=== PATIENT | female | born 1955 | race Caucasian/White ===

== ENCOUNTER 2017-03-27 16:31 | Emergency (ER) | payer OTHER ==
[~2017-03-27] VITALS: Ht 157.5 cm; Wt 54.4 kg
[~2017-03-27 16:31] MED LIST: ATIVAN0.5 MG ORAL; BACTRIM DS TAB1 EAC1 ORAL; BENADRYL ALLERG25 M1 PO; BENADRYL25 M3 PO; BENADRYL25 MG ORAL; CEPHALEXIN500 MG ORAL; HYDROXYZINE HCL25 M1 PO; IBUPROFEN400 MG ORAL; IBUPROFEN600 MG ORAL; MEDROL DOSEPAK4 MG ORAL; NKM; PEPCID20 MG ORAL; PERMETHRIN60 GM TOPIC; ZOFRAN4 M3 ORAL
--- NOTE | 2017-03-27 18:10 | Emergency Room Report ---
History of Present Illness General Chief Complaint: Skin Rash/Abscess Present Illness HPI 62 YO female Presents to the emergency department complaining of possible spider bite to the left eyebrow. Patient states that she has had multiple pimples in that area with erythema and tenderness with mild swelling. She denies burning sensation, blistering, recent illness, fevers, chills, eye pain. Pt states pimples occurred after having a wig glued into her hair, denies itching. Patient states that recently the upper eyelid began to swell and become mildly erythematous as well. Patient denies discharge from the eye or visual changes. Patient also states she has had decreased hearing in the left ear she denies ear pain she reports use of q-tips, denies tenderness or discharge from the ear. Denies CP, Palpitations, LOC, AMS, dizziness, Changes in Vision, Sensation, paresthesias, or a sudden severe headache. Allergies: Coded Allergies: No Known Allergies (Unverified , 01/04/14) Patient History Past Medical History: see triage record Past Surgical History: none Pertinent Family History: none Now: No Reviewed Nursing Documentation: PMH: Agreed, PSxH: Agreed Nursing Documentation-PMH Hx Asthma: Yes Review of Systems All Other Systems: negative except mentioned in HPI Physical Exam Vital Signs Date Time Temp Pulse Resp B/P Pulse Ox O2 Delivery O2 Flow Rate FiO2 03/27/17 17:08 98.1 79 20 133/100 99 Room Air Sp02 EP Interpretation: reviewed, normal General Appearance: no apparent distress, alert, GCS 15, non-toxic Head: normocephalic, atraumatic Eyes: left eye other - erythema and swelling to the left upper eyelid, coalsecent with erythema from pustules of the left eyebrow, increased lacrimation noted, and mild d/c , bilateral eye EOMI, bilateral eye PERRL, bilateral eye normal inspection ENT: hearing grossly normal, normal pharynx, no angioedema, normal voice, other - cerumen impaction of the left ear canal, no vessicles, lesions or erythema of the canal other fortune. Neck: full range of motion, no meningismus, supple/symm/no masses Respiratory: lungs clear, normal breath sounds, speaking full sentences Cardiovascular #1: regular rate, rhythm, no edema Rectal: deferred Genitourinary: normal inspection Musculoskeletal: back normal, gait/station normal, normal range of motion, non- tender Neurologic: alert, oriented x3, responsive, motor strength/tone normal, sensory intact, speech normal Psychiatric: judgement/insight normal, memory normal, mood/affect normal Skin: normal color, warm/dry, well hydrated, other - pustules noted to the left sided hair line, and left forhead/eyebrow mild surrounding erythema, no vessicles. Lymphatic: no adenopathy Medical Decision Making PA Attestation Dr. Coughlin is my supervising Physician whom patient management has been discussed with. Diagnostic Impression: Primary Impression: Folliculitis Additional Impressions: Conjunctivitis Qualified Codes: H10.32 - Unspecified acute conjunctivitis, left eye Impacted cerumen of left ear ER Course 62 YO female Presents to the emergency department complaining of possible spider bite to the left eyebrow. Patient states that she has had multiple pimples in that area with erythema and tenderness with mild swelling. She denies burning sensation, blistering, recent illness, fevers, chills, eye pain. Pt states pimples occurred after having a wig glued into her hair, denies itching. Patient states that recently the upper eyelid began to swell and become mildly erythematous as well. Patient denies discharge from the eye or visual changes. Patient also states she has had decreased hearing in the left ear she denies ear pain she reports use of q-tips, denies tenderness or discharge from the ear. Denies CP, Palpitations, LOC, AMS, dizziness, Changes in Vision, Sensation, paresthesias, or a sudden severe headache. Ddx considered but are not limited to cellulitis, scabies, shingles, varicella, dermatitis, urticaria, eczema, tinea, folliculitis, conjunctivitis, orbital cellulitis, hordeolum Vital signs: are WNL, pt. is afebrile H&PE are most consistent with folliculitis, left eye conjunctivitis, and impacted cerumen ORDERS: none required at this time, the diagnosis is clinical ED INTERVENTIONS: None required at this time. DISCHARGE: At this time pt. is stable for d/c to home. Will provide printed patient care instructions, and any necessary prescriptions. Care plan and follow up instructions have been discussed with the patient prior to discharge. Last Vital Signs Date Time Temp Pulse Resp B/P Pulse Ox O2 Delivery O2 Flow Rate FiO2 7/14/17 17:08 98.1 79 20 133/100 99 Room Air Disposition: HOME, SELF-CARE Condition: Stable Scripts Erythromycin Base (Erythromycin) 1 Gm Oint...g. 1 GM OP BID, #1 GM Prov: Alesha Raphael 03/27/17 Carbamide Peroxide (DEBROX) 15 Ml Drops 10 DROP LEFT EAR TWICE A DAY for 4 Days, #15 ML 0 Refills Prov: Alesha Raphael 03/27/17 Cephalexin* (KEFLEX*) 500 Mg Capsule 500 MG ORAL EVERY 12 HOURS for 7 Days, #14 CAP 0 Refills Prov: Alesha Raphael 03/27/17 Referrals: [facility],REFERRING (PCP) Patient Instructions: Cerumen Impaction, Folliculitis Additional Instructions: Take medications as directed. Follow up with a Primary Care Provider in 3-5 days, even if your symptoms have resolved. --Please review list of primary care clinics, if you do not already have a primary care provider Return sooner to ED if new symptoms occur, or current symptoms become worse. - Please note that this Emergency Department Report was dictated using [employer] information clerk technology software, occasionally this can lead to erroneous entry secondary to interpretation by the dictation equipment. Alesha Raphael Mar 27, 2017 18:10
[2017-03-27] MEDS ORDERED: DEBROX15 M1 LEFT EAR (18:12)
[2017-03-27] MEDS ORDERED: CEPHALEXIN500 MG ORAL (18:12)
[2017-03-27] MEDS ORDERED: ERYTHROMYCIN1 G1 OP (18:12)
[2017-03-27 18:27] VITALS: BP 122/99
== END 2017-03-27 18:27 | disposition home or self-care (01) ==
LOC: EMR 18:00
DX: L73.9 Follicular disorder, unspecified (principal); F48.8 Other specified nonpsychotic mental disorders; H61.22 Impacted cerumen, left ear
CPT/HCPCS: 99284

== ENCOUNTER 2017-05-27 11:37 | Inpatient (IN) | payer OTHER ==
[~2017-05-27] VITALS: Ht 162.6 cm; Wt 55.3 kg
[~2017-05-27 11:37] MED LIST changes: +DEBROX15 M1 LEFT EAR; +ERYTHROMYCIN1 G1 OP
[2017-05-27] MEDS ORDERED: Morphine Sulfate 2mg/ml Inj IVP ONE ×2 (12:00→17:00)
--- NOTE | 2017-05-27 12:05 | Emergency Room Report ---
History of Present Illness General Chief Complaint: Abdominal Pain Source: Patient Present Illness HPI 62 yo female with no sig pmhx p/w abdominal pain today. Patient states pain localized to right upper abdomen, non radiating, sharp in nature, intermittent. No relieving or exacerbating factors. Severity is 5/10. Pt reports n/v, 2 episodes of nbnb vomiting, denies diarrhea Denies fever, chills. No hx of abdominal surgeries. Denies any chest pain or shortness of breath Allergies: Coded Allergies: No Known Allergies (Unverified , 01/04/14) Patient History Past Medical History: see triage record Past Surgical History: none Pertinent Family History: none Last Menstrual Period: na Now: No Reviewed Nursing Documentation: PMH: Agreed, PSxH: Agreed Nursing Documentation-PMH Past Medical History: No Stated History Review of Systems All Other Systems: negative except mentioned in HPI Physical Exam Vital Signs Date Time Temp Pulse Resp B/P (MAP) Pulse Ox O2 Delivery O2 Flow Rate FiO2 05/27/17 11:38 97.5 119 36 144/104 100 Room Air Sp02 EP Interpretation: reviewed, normal General Appearance: normal inspection, well appearing, no apparent distress, alert, GCS 15, non-toxic Head: normocephalic, atraumatic Eyes: bilateral eye normal inspection, bilateral eye PERRL, bilateral eye EOMI ENT: normal ENT inspection, normal pharynx, normal voice, moist mucus membranes Neck: normal inspection, full range of motion, supple Respiratory: normal inspection, lungs clear, normal breath sounds, no respiratory distress, no retraction, no wheezing, speaking full sentences, chest symmetrical Cardiovascular #1: normal inspection, no edema, normal capillary refill, tachycardia Cardiovascular #2: 2+ radial (R), 2+ radial (L) Gastrointestinal: soft, non-distended, other - Right upper quadrant tenderness , mild epigastric tenderness, nontender all other quadrants of the abdomen Musculoskeletal: normal inspection, back normal, normal range of motion, non- tender Neurologic: normal inspection, alert, oriented x3, responsive, motor strength/ tone normal, sensory intact, normal gait, speech normal Psychiatric: normal inspection, judgement/insight normal, memory normal Skin: normal inspection, normal color, no rash, warm/dry, well hydrated, normal turgor Procedures Critical Care Time Critical Care Time 40 minutes of CC time 62YO female with abdominal pain VS: Tachycardic Sepsis criteria met Airway patent. Not hypoxic. PLAN: IV access, labs, lactate, Blood/Urine Cx, Abx, right upper quadrant sonogram Anticipate admissionto Tele CC time also includes review of labs, d/w hospitalist CC could include dosing of pressors, additional Abx CC time does not include procedures Medical Decision Making Diagnostic Impression: Primary Impression: Severe sepsis Additional Impression: Cholecystitis ER Course 62 yo female with abdominal pain Differential Diagnosis: Gastritis, gastroenteritis, cholecystitis, cardiac Plan: Basic labs, ua, ekg Pepcid, maalox, pain control, IVF RUQ sono ER course: Patient has remained stable during ED stay. Received IV fluids and antibiotics. Right upper quadrant sonogram consistent with acute cholecystitis. Disposition: patient will be admitted to telemetry for sepsis secondary to cholecystitis registrations states that patient will be admitted to Dr. Giraldo, contacted Dr. Giraldo and requested admission to Dr. Berumenmedi Surgeon Dr. Gabriel aware of patient. Please note that this Emergency Department Report was dictated using [employer] tender technology software, occasionally this can lead to erroneous entry secondary to interpretation by the dictation equipment Laboratory Tests Test 05/27/17 12:45 White Blood Count 30.7 K/UL (4.8-10.8) *H Red Blood Count 4.76 M/UL (4.20-5.40) Hemoglobin 13.7 G/DL (12.0-16.0) Hematocrit 42.2 % (37.0-47.0) Mean Corpuscular Volume 89 FL (80-99) Mean Corpuscular Hemoglobin 28.7 PG (27.0-31.0) Mean Corpuscular Hemoglobin Concent 32.4 G/DL (32.0-36.0) Red Cell Distribution Width 11.1 % (11.6-14.8) L Platelet Count 179 K/UL (150-450) Mean Platelet Volume 12.0 FL (6.5-10.1) H Neutrophils (%) (Auto) % (45.0-75.0) Lymphocytes (%) (Auto) % (20.0-45.0) Monocytes (%) (Auto) % (1.0-10.0) Eosinophils (%) (Auto) % (0.0-3.0) Basophils (%) (Auto) % (0.0-2.0) Neutrophils % (Manual) Pending Lymphocytes % (Manual) Pending Platelet Estimate Pending Platelet Morphology Pending Sodium Level 136 mEQ/L (135-145) Potassium Level 3.6 mEQ/L (3.4-4.9) Chloride Level 92 mEQ/L (98-107) L Carbon Dioxide Level 30 mEQ/L (20-30) Anion Gap 14 (5-15) Blood Urea Nitrogen 21 mg/dL (7-23) Creatinine 1.0 mg/dL (0.5-0.9) H Estimate Glomerular Filtration Rate 56.5 mL/min (>60) Glucose Level 147 mg/dL (74-106) H Calcium Level 9.4 mg/dL (8.6-10.2) Total Bilirubin 0.9 mg/dL (0.0-1.2) Aspartate Amino Transferase (AST) 26 U/L (5-40) Alanine Aminotransferase (ALT) 24 U/L (3-33) Alkaline Phosphatase 36 U/L (35-104) Troponin I < 0.30 ng/mL (<=0.30) Total Protein 7.5 g/dL (6.6-8.7) Albumin 3.8 g/dL (3.5-5.2) Globulin 3.7 g/dL Albumin/Globulin Ratio 1.0 (1.0-2.7) Lipase 8 U/L (< 60) EKG Diagnostic Results Rate: tachycardiac Rhythm: NSR ST Segments: other - pvcs, lvh ASA given to the pt in ED: No Rhythm Strip Diag. Results EP Interpretation: yes Rate: 110 Rhythm: NSR, no PVC's, no ectopy CT/MRI/US Diagnostic Results CT/MRI/US Diagnostic Results : Imaging Test Ordered: US gallbladder Impression mpression: Gallbladder sludge and likely small gallstones. Markedly thickened gallbladder wall. This, in combination with positive sonographic Soliz's sign, raises concern for acute cholecystitis. However, given stated clinical history of jaundice, gallbladder wall thickening could also be reactive in the setting of adjacent hepatocellular inflammation Dilated common bile duct and intrahepatic ducts. Raises concern for downstream obstruction, possibly from choledocholithiasis. Consider MRCP or CT for better characterization Electronically signed by Derrick Espinoza MD Last Vital Signs Date Time Temp Pulse Resp B/P (MAP) Pulse Ox O2 Delivery O2 Flow Rate FiO2 9//17 11:38 97.5 119 36 144/104 100 Room Air Disposition: ADMITTED INPATIENT Condition: Serious Derrick Espinoza M.D. May 27, 2017 12:05
[2017-05-27 12:52] LABS: MEAN CORPUSCULAR HEMOGLOBIN 28.7 PG (27.0-31.0); MEAN CORPUSCULAR HGB CONC 32.4 G/DL (32.0-36.0); MEAN CORPUSCULAR VOLUME 89 FL (80-99); PLATELET COUNT 179 K/UL (150-450); RED BLOOD COUNT 4.76 M/UL (4.20-5.40); RED CELL DISTRIBUTION WIDTH 11.1 % (11.6-14.8)
[2017-05-27 12:57] LABS: WHITE BLOOD COUNT 30.7 K/UL (4.8-10.8)
[2017-05-27] MEDS ORDERED: NS 1000ml 1,600 ML IVLG ONE (13:00)
[2017-05-27] MEDS ORDERED: cefTRIAXone 1 GM in NS 55 ML IV ONE (13:00)
[2017-05-27] MEDS ORDERED: metroNIDAZOLE 500mg tab ORAL ONE (13:00)
[2017-05-27 13:03] VITALS: BP 125/94
[2017-05-27 13:05] LABS: CALCIUM 9.4 mg/dL (8.6-10.2); GLOMERULAR FILTRATION RATE 56.5 mL/min (>60); POTASSIUM 3.6 mEQ/L (3.4-4.9); TOTAL PROTEIN 7.5 g/dL (6.6-8.7); TROPONIN I < 0.30 ng/mL (<=0.30)
[2017-05-27 13:48] LABS: BAND NEUTROPHILS % (MANUAL) 0 % (0-8); BASOPHILS % (MANUAL) 0 % (0-2); EOSINOPHILS % (MANUAL) 0 % (0-3); LYMPHOCYTES % (MANUAL) 3 % (20-45); NEUTROPHILS % (MANUAL) 88 % (45-75); PLATELET ESTIMATE ADEQUATE; PLATELET MORPHOLOGY NORMAL; TOTAL CELLS COUNTED 100
[2017-05-27 13:49] LABS: HYPOCHROMASIA 1+
[2017-05-27 13:50] LABS: MICROCYTES 2+
[2017-05-27 14:27] VITALS: BP 125/72
[2017-05-27 14:27] LABS: REFLEX LACTIC ACID YES OR NO YES
--- NOTE | 2017-05-27 14:42 | Diagnostic Imaging Report ---
Indication: Right upper quadrant pain Technique: Tee-scale and duplex images of the upper abdomen were obtained Comparison: Findings: Gallbladder demonstrates sludge and likely one or more small gallstones. Small rounded areas of somewhat hypoechoic material probably represents sludge balls. The gallbladder wall is markedly thickened, measuring 9 mm thick. There is equivocally trace pericholecystic fluid. Sonographic Soliz's sign is positive Common bile duct measures 9 mm in diameter. There is also intrahepatic biliary ductal dilatation.. Liver demonstrates normal echogenicity, no focal abnormality. Portal vein and hepatic veins are patent. Pancreas is unremarkable. Spleen is unremarkable. Left kidney measures 10.9 cm in length. Right kidney measures 11.1 cm length. Both kidneys demonstrate normal echogenicity. There is no hydronephrosis. No focal abnormality . Non-aneurysmal abdominal aorta . Impression: Gallbladder sludge and likely small gallstones. Markedly thickened gallbladder wall. This, in combination with positive sonographic Soliz's sign, raises concern for acute cholecystitis. However, given stated clinical history of jaundice, gallbladder wall thickening could also be reactive in the setting of adjacent hepatocellular inflammation Dilated common bile duct and intrahepatic ducts. Raises concern for downstream obstruction, possibly from choledocholithiasis. Consider MRCP or CT for better characterization No other significant abnormality
[2017-05-27] MEDS ORDERED: metroNIDAZOLE 500mg 100 ML IVPB ONE (15:15)
[2017-05-27 16:07] VITALS: BP 151/83
--- NOTE | 2017-05-27 17:16 | General Progress Note ---
Progress Note Progress Note Chart reviewed, pt examined, consult dictated. Impression: acute cholecystitis, hx of heroin use Plan: stat HIDA scan, will most likely need a laparoscopic cholecystectomy tomorrow. Yobany Goldstein MD May 27, 2017 17:15
[2017-05-27 17:46] LABS: INR 1.1 (0.9-1.1); PROTHROMBIN TIME 11.4 SEC (9.30-11.50)
[2017-05-27 17:53] VITALS: BP 156/79
[2017-05-27] MEDS ORDERED: Zolpidem 5mg tab ORAL PRN (18:30)
--- NOTE | 2017-05-27 18:53 | Nephrology Progress Note ---
Assessment/Plan Problem List: (1) Cholecystitis (2) Severe sepsis (3) Abdominal pain (4) anxiety (5) Polysubstance abuse (6) Gall stones Plan H&P DICTATED # [id number] Subjective Subjective In bed, complains of right upper quadrant pain. Objective Objective Last 24 Hour Vital Signs Date Time Temp Pulse Resp B/P (MAP) Pulse Ox O2 Delivery O2 Flow Rate FiO2 05/27/17 17:53 99.5 92 20 156/79 100 Room Air 05/27/17 17:48 92 20 156/79 100 Room Air 05/27/17 16:07 99.5 88 20 151/83 99 Room Air 05/27/17 14:27 93 19 125/72 99 Room Air 05/27/17 13:03 113 23 125/94 98 Room Air 05/27/17 11:38 97.5 119 36 144/104 100 Room Air Intake and Output 05/27/17 05/28/17 19:00 07:00 Intake Total 2755 ml Balance 2755 ml Intake Oral 0 ml IV Total 2755 ml Laboratory Tests 05/27/17 12:45: White Blood Count 30.7*H, Red Blood Count 4.76, Hemoglobin 13.7, Hematocrit 42.2 , Mean Corpuscular Volume 89, Mean Corpuscular Hemoglobin 28.7, Mean Corpuscular Hemoglobin Concent 32.4, Red Cell Distribution Width 11.1L, Platelet Count 179, Mean Platelet Volume 12.0H, Neutrophils (%) (Auto) , Lymphocytes (%) (Auto) , Monocytes (%) (Auto) , Eosinophils (%) (Auto) , Basophils (%) (Auto) , Differential Total Cells Counted 100, Neutrophils % ( Manual) 88H, Lymphocytes % (Manual) 3L, Monocytes % (Manual) 9, Eosinophils % ( Manual) 0, Basophils % (Manual) 0, Band Neutrophils 0, Platelet Estimate Adequate, Platelet Morphology Normal, Hypochromasia 1+, Microcytosis 2+, Sodium Level 136, Potassium Level 3.6, Chloride Level 92L, Carbon Dioxide Level 30, Anion Gap 14, Blood Urea Nitrogen 21, Creatinine 1.0H, Estimat Glomerular Filtration Rate 56.5, Glucose Level 147H, Calcium Level 9.4, Total Bilirubin 0.9 , Aspartate Amino Transf (AST/SGOT) 26, Alanine Aminotransferase (ALT/SGPT) 24, Alkaline Phosphatase 36, Troponin I < 0.30, Total Protein 7.5, Albumin 3.8, Globulin 3.7, Albumin/Globulin Ratio 1.0, Lipase 8 05/27/17 13:50: Prothrombin Time 11.4, Prothromb Time International Ratio 1.1, Activated Partial Thromboplast Time 29, Lactic Acid Level 2.00 05/27/17 16:00: Lactic Acid Level 1.00 Height (Feet): 5 Height (Inches): 4.00 Weight (Pounds): 120 General Appearance: no apparent distress, alert EENT: normal ENT inspection Neck: non-tender, normal alignment Cardiovascular: normal rate, regular rhythm, no JVD Respiratory/Chest: normal breath sounds, no respiratory distress Abdomen: tender Extremities: non-tender, normal inspection, no calf tenderness Neurologic: alert, oriented x 3, responsive, normal mood/affect Milka Hutson N.P. May 27, 2017 18:53
[2017-05-27] MEDS ORDERED: LORazepam Inj 2mg/ml 1ml IV PRN (19:00)
[2017-05-27 20:00] VITALS: BP 144/89
[2017-05-27] MEDS: D5 1/2NS w/KCl 20mEq 1,000 ML IV SCH (20:08)
[2017-05-27] MEDS: HYDROmorphone 1mg/ml Carpuject IVP PRN (20:39)
[2017-05-27] MEDS: Docusate 100mg cap ORAL SCH (20:40)
[2017-05-27] MEDS: metroNIDAZOLE 500mg 100 ML IVPB SCH (23:10)
--- NOTE | 2017-05-27 23:15 | Consultation ---
DATE OF CONSULTATION: 05/27/2017 SURGICAL CONSULTATION REASON FOR CONSULTATION: Abdominal pain, probable cholecystitis. History Of Present Illness: This 62-year-old female, presented with a two-day history of worsening upper abdominal pain accompanied by nausea and vomiting. The patient denied any symptoms of fever or chills. She has had no previous abdominal surgeries. She does have a history of heroin abuse and has been on methadone for the past seven years. MEDICATIONS: Methadone and Pepcid 20 mg daily. ALLERGIES: None known. SOCIAL HISTORY: Tobacco, none. Alcohol, none. Family History: Negative for diabetes, heart disease, or hypertension. There is no family history of malignancies. Review Of Systems: The patient denies any past history of asthma or angina. She denies any history of hepatitis. She is a 2, para 2 female. PHYSICAL EXAMINATION: General: Reveals a slim female, complaining of abdominal pain. Vital Signs: Temperature 99.5 degrees, blood pressure 151/83, pulse 88, and respirations 20. HEENT: Normocephalic. Pupils are equal and reactive to light. There was no scleral icterus. NECK: Supple without adenopathy. LUNGS: Clear. HEART: Regular rhythm without murmurs or gallops. Abdomen: Flat. There is tenderness with guarding in the right upper quadrant and right mid abdomen. There were no palpable masses. Extremities: No clubbing, cyanosis, or edema. Peripheral pulses were present. Laboratory Studies: CBC showed a white blood count of 30,700, hemoglobin 13.7 grams percent, hematocrit 42.2, and platelet count was 179,000. Clinical chemistry showed a sodium of 136, potassium 3.6, chloride 92, bicarbonate 30, BUN 21, creatinine 1.0, glucose 147, and calcium 9.4. Total bilirubin 0.9. SGOT 24, SGPT 26, and alkaline phosphatase normal at 36. Albumin 3.8. Lipase normal at 8. An ultrasound of the abdomen showed gallbladder sludge and likely one or more small gallstones. The gallbladder wall was markedly thickened measuring 9 mm, the common bile duct measured 9 mm. There was also intrahepatic ductal dilatation. The liver demonstrates normal echogenicity. No focal abnormality. Portal vein and hepatic veins are patent. Pancreas is unremarkable. Impression of the ultrasound is gallbladder sludge and likely small gallstones with a markedly thickened gallbladder wall. IMPRESSION: Probable cholecystitis. Plan: We will obtain a stat HIDA scan of the abdomen. If the HIDA scan is positive, we will reschedule for a laparoscopic cholecystectomy tomorrow. Yobany Goldstein M.D. DR: JITENDRA JOB#: [id number] CC:
[2017-05-28] VITALS (12 sets, daily range): BP systolic 145–180; BP diastolic 76–115
[2017-05-28] MEDS: HYDROmorphone 1mg/ml Carpuject IVP PRN ×3 (00:44→15:20)
[2017-05-28] MEDS: metroNIDAZOLE 500mg 100 ML IVPB SCH ×3 (05:36→22:29)
--- NOTE | 2017-05-28 08:01 | HX and Phyl Repo 2 Sig ---
DATE OF ADMISSION: 05/27/2017 INTERNAL MEDICINE HISTORY AND PHYSICAL History Of Present Illness: The patient is a 62-year-old female with no known past medical history, who presented to the emergency room with a right upper quadrant abdominal pain. According to her, the pain started about two days ago while at rest and has progressively worsened, which prompted her visit to the emergency room. She did ask her friend to bring her. She denies chest pain. She stated that she has some nausea and did vomit this morning. According to her, it was right after eating some food that she vomited. She denies diarrhea. No fever. She states that she has some chills. No sick contacts. No diarrhea. No other associated symptoms. PAST MEDICAL HISTORY: Unknown. Medications: Home medications, she stated that she only takes methadone. She goes to the methadone clinic three times a week. ALLERGIES: She has no known allergies. Social History: The patient states that she lives alone in an apartment. She stated that she was a former drug user and stopped using drugs about nine years ago. Denies smoking and denies alcohol use. Review Of Systems: A full 12-point review of system was reviewed with the patient and positive as stated in the history of present illness. PHYSICAL EXAMINATION: General: This is a 62-year-old female, in no apparent distress, lying in bed. HEENT: Head is normocephalic and atraumatic with moist mucous membranes. Pupils are equal, round, and reactive to light and accommodation. NECK: Supple. No JVD noted. LUNGS: Clear to auscultation bilaterally. CARDIOVASCULAR: Regular rate and rhythm. S1 and S2. Abdomen: Soft. Right upper quadrant tenderness. Positive bowel sounds in all four quadrants. EXTREMITIES: No edema. No cyanosis. No clubbing. Neurologic: The patient is awake, alert, and oriented x3 with no focal deficits. Laboratory And Diagnostic Data: CBC, white count 30.7, hemoglobin 13.7, hematocrit 42.2, and platelet count of 179,000. BMP, sodium 136, potassium 3.6, chloride 92, bicarbonate 30, BUN 21, creatinine 1.0, and blood glucose is 147. Radiologic findings, abdominal ultrasound. Impression, gallbladder sludge and likely small gallstones, markedly thickened gallbladder wall. This in combination with positive sonographic Soliz sign raises concern for acute cholecystitis. However, given stated clinical history of jaundice, gallbladder wall thickening could also be reactive in the setting of adjacent hepatocellular inflammation. Dilated common bile duct and intrahepatic ducts raises concern for downstream obstruction possibly from choledocholithiasis. Consider MRCP or CT for better catheterization. No other significant abnormality. ASSESSMENT: 1. Gallstones. 2. Acute cholecystitis. 3. Abdominal pain. 4. History of heroin abuse. 5. Leukocytosis. Plan: Dr. Haywood has already seen the patient and plan is possible laparoscopic cholecystectomy tomorrow, 05/28/2017. We will obtain an Infectious Diseases consult on this patient due to elevated WBC of 30.7. We will start antibiotics Levaquin and Flagyl IV. We will monitor lytes and correct p.r.n. Monitor counts as well. Pain management as needed with Dilaudid. We will start IV fluid with D5 half plus 20 mEq of potassium at 75 mL an hour. We will obtain morning laboratories as well. Continue methadone per pharmacy. We will monitor the patient's overall response to treatment. Salvador Lindsey M.D. Milka Hutson DR: Roque JOB#: [id number] CC:
--- NOTE | 2017-05-28 08:18 | Infectious Diseases Prog Note ---
Assessment/Plan Problems: (1) Cholecystitis Assessment & Plan: suspect complication with sepsis, will switch antibiotics to zosyn empirically pending surgical resection for source control (2) Severe sepsis Assessment & Plan: due to cholecystitis , will switch antibiotics to zosyn, pending culture results (3) Gall stones Assessment & Plan: with acute cholecystitis, needs surgical resection , surgery is following Subjective Allergies: Coded Allergies: No Known Allergies (Unverified , 01/04/14) Objective Vital Signs Last 24 Hour Vital Signs Date Time Temp Pulse Resp B/P (MAP) Pulse Ox O2 Delivery O2 Flow Rate FiO2 05/28/17 04:00 90 05/28/17 04:00 97.1 91 24 145/92 98 Room Air 05/28/17 00:00 89 05/28/17 00:00 97.5 95 24 150/76 95 Room Air 05/27/17 20:00 100.0 91 23 144/89 98 Room Air 05/27/17 20:00 90 05/27/17 17:53 99.5 92 20 156/79 100 Room Air 05/27/17 17:48 92 20 156/79 100 Room Air 05/27/17 16:07 99.5 88 20 151/83 99 Room Air 05/27/17 14:27 93 19 125/72 99 Room Air 05/27/17 13:03 113 23 125/94 98 Room Air 05/27/17 11:38 97.5 119 36 144/104 100 Room Air Height (Feet): 5 Height (Inches): 4.00 Weight (Pounds): 122 Laboratory Tests Test 05/27/17 12:45 05/27/17 13:50 05/27/17 16:00 White Blood Count 30.7 K/UL (4.8-10.8) *H Red Blood Count 4.76 M/UL (4.20-5.40) Hemoglobin 13.7 G/DL (12.0-16.0) Hematocrit 42.2 % (37.0-47.0) Mean Corpuscular Volume 89 FL (80-99) Mean Corpuscular Hemoglobin 28.7 PG (27.0-31.0) Mean Corpuscular Hemoglobin Concent 32.4 G/DL (32.0-36.0) Red Cell Distribution Width 11.1 % (11.6-14.8) L Platelet Count 179 K/UL (150-450) Mean Platelet Volume 12.0 FL (6.5-10.1) H Neutrophils (%) (Auto) % (45.0-75.0) Lymphocytes (%) (Auto) % (20.0-45.0) Monocytes (%) (Auto) % (1.0-10.0) Eosinophils (%) (Auto) % (0.0-3.0) Basophils (%) (Auto) % (0.0-2.0) Differential Total Cells Counted 100 Neutrophils % (Manual) 88 % (45-75) H Lymphocytes % (Manual) 3 % (20-45) L Monocytes % (Manual) 9 % (1-10) Eosinophils % (Manual) 0 % (0-3) Basophils % (Manual) 0 % (0-2) Band Neutrophils 0 % (0-8) Platelet Estimate Adequate Platelet Morphology Normal Hypochromasia 1+ Microcytosis 2+ Sodium Level 136 mEQ/L (135-145) Potassium Level 3.6 mEQ/L (3.4-4.9) Chloride Level 92 mEQ/L (98-107) L Carbon Dioxide Level 30 mEQ/L (20-30) Anion Gap 14 (5-15) Blood Urea Nitrogen 21 mg/dL (7-23) Creatinine 1.0 mg/dL (0.5-0.9) H Estimat Glomerular Filtration Rate 56.5 mL/min (>60) Glucose Level 147 mg/dL (74-106) H Calcium Level 9.4 mg/dL (8.6-10.2) Total Bilirubin 0.9 mg/dL (0.0-1.2) Aspartate Amino Transf (AST/SGOT) 26 U/L (5-40) Alanine Aminotransferase (ALT/SGPT) 24 U/L (3-33) Alkaline Phosphatase 36 U/L (35-104) Troponin I < 0.30 ng/mL (<=0.30) Total Protein 7.5 g/dL (6.6-8.7) Albumin 3.8 g/dL (3.5-5.2) Globulin 3.7 g/dL Albumin/Globulin Ratio 1.0 (1.0-2.7) Lipase 8 U/L (< 60) Prothrombin Time 11.4 SEC (9.30-11.50) Prothromb Time International Ratio 1.1 (0.9-1.1) Activated Partial Thromboplast Time 29 SEC (23-33) Lactic Acid Level 2.00 mmol/L (0.66-2.22) 1.00 mmol/L (0.66-2.22) Current Medications Medications (Trade) Dose Ordered Sig/Thalia Route PRN Reason Start Time Stop Time Status Last Admin Dose Admin Amlodipine Besylate (Norvasc) 5 mg DAILY ORAL 05/27/17 19:30 06/26/17 19:29 Dextrose (Dextrose 50%) STAT PRN IV Hypoglycemia 05/27/17 18:30 06/26/17 18:29 Dextrose/ Electrolytes 1,000 ml @ 75 mls/hr [id number] IV 05/27/17 19:30 06/26/17 19:29 05/27/17 20:08 Docusate Sodium (Colace) 100 mg EVERY 12 HOURS ORAL 05/27/17 21:00 06/26/17 20:59 Hydromorphone HCl (Dilaudid) 1 mg Q4H PRN IVP Moderate Pain (Pain Scale 4-6) 05/27/17 18:30 06/03/17 18:29 05/28/17 05:36 Levofloxacin 100 ml @ 100 mls/hr Q24H IVPB 05/27/17 21:00 06/03/17 20:59 05/27/17 20:40 Lorazepam (Ativan 2mg/ml 1ml) 1 mg Q4H PRN IV For Anxiety 05/27/17 19:00 06/03/17 18:59 Methadone HCl (Methadone HCl) 60 mg DAILY ORAL 05/28/17 09:00 06/04/17 08:59 UNV Metronidazole 100 ml @ 100 mls/hr Q8HR IVPB 05/27/17 23:30 06/03/17 23:29 05/28/17 05:36 Morphine Sulfate (Morphine Sulfate) 2 mg ONCE ONCE IVP 05/28/17 09:00 05/28/17 09:01 Ondansetron HCl (Zofran) 4 mg Q4H PRN IVP Nausea & Vomiting 05/27/17 18:30 06/26/17 18:29 Zolpidem Tartrate (Ambien) 5 mg DAILYPRN PRN ORAL Insomnia 05/27/17 18:30 06/03/17 18:29 Riya Franco M.D. May 28, 2017 08:18
[2017-05-28] MEDS: D5 1/2NS w/KCl 20mEq 1,000 ML IV SCH ×2 (08:50→22:29)
[2017-05-28] MEDS: Morphine Sulfate 2mg/ml Inj IVP ONE ×2 (09:00→09:15)
[2017-05-28] MEDS: Docusate 100mg cap ORAL SCH ×2 (09:00→21:13)
[2017-05-28 10:24] LABS: MEAN CORPUSCULAR HEMOGLOBIN 29.2 PG (27.0-31.0); MEAN CORPUSCULAR HGB CONC 32.4 G/DL (32.0-36.0); MEAN CORPUSCULAR VOLUME 90 FL (80-99); MEAN PLATELET VOLUME 12.3 FL (6.5-10.1); PLATELET COUNT 133 K/UL (150-450); RED BLOOD COUNT 4.19 M/UL (4.20-5.40); RED CELL DISTRIBUTION WIDTH 11.2 % (11.6-14.8)
[2017-05-28] MEDS ORDERED: Iothalamate Meglumine 60% 30ML INJ ONE (10:26)
[2017-05-28] MEDS ORDERED: Bupivacaine w/Epi 0.25% 30ml Vial INJ ONE (10:26)
[2017-05-28 10:30] LABS: WHITE BLOOD COUNT 23.7 K/UL (4.8-10.8)
--- NOTE | 2017-05-28 10:41 | Anethesia Preoperative Eval ---
Anesthesia Pre-op PMH/ROS General Date of Evaluation: May 28, 2017 Anesthesiologist: Stephan ASA Score: ASA 3 Mallampati Score Class I : Soft palate, uvula, fauces, pillars visible Class II: Soft palate, uvula, fauces visible Class III: Soft palate, base of uvula visible Class IV: Only hard plate visible Mallampati Classification: Class II Surgeon: Nery Diagnosis: Abd Pain Surgical Procedure: Laparoscopic Cholecystectomy Anesthesia History: none Family History: no anesthesia problems Allergies: Coded Allergies: No Known Allergies (Unverified , 01/04/14) Medications: see eMAR Past Medical History Cardiovascular: Reports: HTN Anesthesia Pre-op Phys. Exam Physician Exam Last Vital Signs Date Time Temp Pulse Resp B/P (MAP) Pulse Ox O2 Delivery O2 Flow Rate FiO2 05/28/17 04:00 90 05/28/17 04:00 97.1 24 145/92 98 Room Air Constitutional: NAD Neurologic: CN 2-12 intact Cardiovascular: RRR Respiratory: CTA Gastrointestinal: S/NT/ND Airway Exam Mallampati Score: Class II MO: full ROM: full Teeth: missing Anesthesia Pre-op A/P Labs Hematology Test 05/27/17 12:45 05/28/17 10:00 White Blood Count 30.7 K/UL (4.8-10.8) *H 23.7 K/UL (4.8-10.8) *H Red Blood Count 4.76 M/UL (4.20-5.40) 4.19 M/UL (4.20-5.40) L Hemoglobin 13.7 G/DL (12.0-16.0) 12.2 G/DL (12.0-16.0) Hematocrit 42.2 % (37.0-47.0) 37.8 % (37.0-47.0) Mean Corpuscular Volume 89 FL (80-99) 90 FL (80-99) Mean Corpuscular Hemoglobin 28.7 PG (27.0-31.0) 29.2 PG (27.0-31.0) Mean Corpuscular Hemoglobin Concent 32.4 G/DL (32.0-36.0) 32.4 G/DL (32.0-36.0) Red Cell Distribution Width 11.1 % (11.6-14.8) L 11.2 % (11.6-14.8) L Platelet Count 179 K/UL (150-450) 133 K/UL (150-450) L Mean Platelet Volume 12.0 FL (6.5-10.1) H 12.3 FL (6.5-10.1) H Neutrophils (%) (Auto) % (45.0-75.0) % (45.0-75.0) Lymphocytes (%) (Auto) % (20.0-45.0) % (20.0-45.0) Monocytes (%) (Auto) % (1.0-10.0) % (1.0-10.0) Eosinophils (%) (Auto) % (0.0-3.0) % (0.0-3.0) Basophils (%) (Auto) % (0.0-2.0) % (0.0-2.0) Differential Total Cells Counted 100 Neutrophils % (Manual) 88 % (45-75) H Pending Lymphocytes % (Manual) 3 % (20-45) L Pending Monocytes % (Manual) 9 % (1-10) Eosinophils % (Manual) 0 % (0-3) Basophils % (Manual) 0 % (0-2) Band Neutrophils 0 % (0-8) Platelet Estimate Adequate Pending Platelet Morphology Normal Pending Hypochromasia 1+ Microcytosis 2+ Coagulation Test 05/27/17 13:50 Prothrombin Time 11.4 SEC (9.30-11.50) Prothromb Time International Ratio 1.1 (0.9-1.1) Activated Partial Thromboplast Time 29 SEC (23-33) Chemistry Test 05/27/17 12:45 05/27/17 13:50 05/27/17 16:00 05/28/17 10:00 Sodium Level 136 mEQ/L (135-145) Pending Potassium Level 3.6 mEQ/L (3.4-4.9) Pending Chloride Level 92 mEQ/L (98-107) L Pending Carbon Dioxide Level 30 mEQ/L (20-30) Pending Anion Gap 14 (5-15) Blood Urea Nitrogen 21 mg/dL (7-23) Pending Creatinine 1.0 mg/dL (0.5-0.9) H Pending Estimat Glomerular Filtration Rate 56.5 mL/min (>60) Pending Glucose Level 147 mg/dL (74-106) H Pending Calcium Level 9.4 mg/dL (8.6-10.2) Pending Total Bilirubin 0.9 mg/dL (0.0-1.2) Pending Aspartate Amino Transf (AST/SGOT) 26 U/L (5-40) Pending Alanine Aminotransferase (ALT/SGPT) 24 U/L (3-33) Pending Alkaline Phosphatase 36 U/L (35-104) Pending Troponin I < 0.30 ng/mL (<=0.30) Total Protein 7.5 g/dL (6.6-8.7) Pending Albumin 3.8 g/dL (3.5-5.2) Pending Globulin 3.7 g/dL Pending Albumin/Globulin Ratio 1.0 (1.0-2.7) Lipase 8 U/L (< 60) Lactic Acid Level 2.00 mmol/L (0.66-2.22) 1.00 mmol/L (0.66-2.22) Thyroid Stimulating Hormone (TSH) Pending Risk Assessment & Plan Assessment: ASA 3 Plan: GA, BIS, Glidescope Status Change Before Surgery: No Pre-Antibiotics Dru Gram Ancef IV Given Within 1 Hr of Incision: Yes Time Given: 11:06 Anjel Rothman MD May 28, 2017 10:41
[2017-05-28] MEDS ORDERED: LR 1000ml 1,000 ML IVLG SCH (10:42)
--- NOTE | 2017-05-28 10:44 | Immediate Post-Op Evaluation ---
Immediate Post-Op Evalulation Immediate Post-Op Evalulation Procedure: Laparoscopic Cholecystectomy Date of Evaluation: May 28, 2017 Time of Evaluation: 13:05 IV Fluids: 1100 Blood Products: 0 Estimated Blood Loss: 75 Urinary Output: 0 Blood Pressure Systolic: 168 Blood Pressure Diastolic: 110 Pulse Rate: 110 Respiratory Rate: 16 O2 Sat by Pulse Oximetry: 100 Temperature (Fahrenheit): 98.8 Pain Score (1-10): 2 Nausea: No Vomiting: No Complications 0 Patient Status: awake, reacts, patent, none Hydration Status: adequate Dru Gram Ancef IV Given Within 1 Hr of Incision: Yes Time Given: 11:06 Anjel Rothman MD May 28, 2017 10:44
[2017-05-28] MEDS ORDERED: Ketorolac 30mg Inj IV PRN (10:45)
[2017-05-28] MEDS ORDERED: Norco 5mg/325mg tab ORAL PRN (10:45)
[2017-05-28] MEDS ORDERED: Metoclopramide 10mg/2ml Inj IVP PRN (10:45)
[2017-05-28] MEDS ORDERED: Norco 7.5mg/325mg tab ORAL PRN (10:45)
[2017-05-28] MEDS ORDERED: DiphenhydrAMINE 50mg/ml Inj IVP PRN (10:45)
[2017-05-28] MEDS ORDERED: Hydromorphone 0.5mg/0.5ml inj IVP PRN (10:45)
[2017-05-28] MEDS ORDERED: Ketorolac 60mg Inj IV PRN (10:45)
[2017-05-28] MEDS ORDERED: Midazolam 2mg/2ml Inj IVP PRN (10:45)
[2017-05-28] MEDS ORDERED: LORazepam Inj 2mg/ml 1ml IV PRN (10:45)
[2017-05-28] MEDS ORDERED: Atropine Inj 1mg/10ml Syr IV PRN (10:45)
[2017-05-28] MEDS ORDERED: fentaNYL 100 mcg/2 mL IV PRN (10:45)
[2017-05-28] MEDS ORDERED: oxyCODONE HCL/Acetaminophen 5/325mg ORAL PRN (10:45)
[2017-05-28] MEDS ORDERED: Meperidine 25mg/0.5ml Inj (FOR RIGORS ONLY) IV PRN (10:45)
[2017-05-28] MEDS ORDERED: Sterile Water Irrig 1000ml IRRIG ONE (10:50)
[2017-05-28] MEDS ORDERED: Lidocaine 1% MPF 10mg/ml 5ml ONE (10:50)
[2017-05-28] MEDS ORDERED: Glycopyrrolate 0.2mg/ml 1ml Vial ONE (10:50)
[2017-05-28] MEDS ORDERED: Propofol 200mg/20ml IV ONE (10:50)
[2017-05-28] MEDS ORDERED: Midazolam 2mg/2ml Inj ONE ×2 (10:50)
[2017-05-28] MEDS ORDERED: Neostigmine 1mg/ml 10ml Inj ONE (10:50)
[2017-05-28] MEDS ORDERED: Dexamethasone 4mg/ml vial ONE (10:50)
[2017-05-28] MEDS ORDERED: NS Irrig 1000ml ONE (10:50)
[2017-05-28] MEDS ORDERED: LR 1000ml ONE (10:50)
[2017-05-28] MEDS ORDERED: Zemuron 50mg/5ml Inj IV ONE (10:50)
[2017-05-28] MEDS ORDERED: fentaNYL 100 mcg/2 mL IV ONE (10:50)
[2017-05-28] MEDS ORDERED: Sodium Chloride 10ml vial INJ ONE (10:50)
[2017-05-28 10:54] LABS: ALANINE AMINOTRANSFERASE 18 U/L (3-33); ALBUMIN/GLOBULIN RATIO 0.9 (1.0-2.7); ANION GAP 11 (5-15); ASPARTATE AMINO TRANSFERASE 25 U/L (5-40); BAND NEUTROPHILS % (MANUAL) 3 % (0-8); BASOPHILS % (MANUAL) 0 % (0-2); CARBON DIOXIDE 29 mEQ/L (20-30); CHLORIDE 98 mEQ/L (98-107); CREATININE 0.6 mg/dL (0.5-0.9); EOSINOPHILS % (MANUAL) 0 % (0-3); GLOMERULAR FILTRATION RATE > 60 mL/min (>60); HEMOLYSIS 2; LYMPHOCYTES % (MANUAL) 4 % (20-45); NEUTROPHILS % (MANUAL) 86 % (45-75); PLATELET ESTIMATE DECREASED; PLATELET MORPHOLOGY NORMAL; SODIUM 138 mEQ/L (135-145); TOTAL CELLS COUNTED 100; TOTAL PROTEIN 6.6 g/dL (6.6-8.7)
[2017-05-28] MEDS ORDERED: NS Irrig 1000ml IRRIG ONE (11:00)
--- NOTE | 2017-05-28 11:16 | Pre-Procedure Note/Attestation ---
Pre-Procedure Note/Attestation Complete Prior to Procedure Planned Procedure: not applicable Procedure Narrative: laparoscopic cholecystectomy, possible open cholecystectomy, possible cholangiogram Indications for Procedure Pre-Operative Diagnosis: acute cholecystitis Attestation I attest that I discussed the nature of the procedure; its benefits; risks and complications; and alternatives (and the risks and benefits of such alternatives ), prior to the procedure, with the patient (or the patient's legal veterans service representative). I attest that, if there was a reasonable possibility of needing a blood transfusion, the patient (or the patient's legal veterans service representative) was given the [facility] standardized written summary, pursuant to the Kishore Ana María Blood Safety Act ([place] Health and Safety Code # 1645, as amended). I attest that I re-evaluated the patient just prior to the surgery and that there has been no change in the patient's H&P, except as documented below:none Yobany Goldstein MD May 28, 2017 11:16
[2017-05-28] MEDS ORDERED: Piperacillin/Tazobactam 3.375 GM in D5W 110 ML IVPB SCH (12:00)
[2017-05-28] MEDS ORDERED: Surgicel 4in x 8in TOPIC ONE (12:02)
--- NOTE | 2017-05-28 12:42 | Brief Operative Note ---
Immediate Post Operative Note Operative Note Pre-op Diagnosis: acute cholecystitis Procedure: laparoscopic cholecystectomy Post-op Diagnosis: gangrenous cholecystitis Surgeon: Yobany Goldstein MD Additional Surgeons: ANA Roman MD Anesthesiologist: Stephan PINON Anesthesia: general Specimen: yes - gallbladder Complications: none Condition: stable Fluids: see records Estimated Blood Loss: volume - 50cc Drains: KIRILL Implant(s) used?: No Raymond Roman May 28, 2017 12:42
--- NOTE | 2017-05-28 15:16 | Diagnostic Imaging Report ---
Indication: Abdominal Pain Technique: 5.5 mCi of technetium 99 m-Choletec was injected intravenously. Planar imaging of the abdomen was then performed every 5 minutes up to 30 minutes and every 10 minutes up to one hour. Oblique views were also obtained. 2 mg of morphine given at 60 minutes ejection. Findings: There is prompt uptake within the liver with good washout of radiotracer from the liver on subsequent imaging. There is excretion into the biliary ducts. No gallbladder activity demonstrated before or after morphine injection up to 90 minutes indicating occlusion of the cystic duct. Bowel activity is seen very indicating patency of CBD. Impression: Positive study. Cystic duct obstruction and acute cholecystitis
[2017-05-28] MEDS ORDERED: Hydromorphone 0.5mg/0.5ml inj IM ONE (18:30)
[2017-05-28] MEDS ORDERED: Hydromorphone 0.5mg/0.5ml inj IVP ONE (18:30)
--- NOTE | 2017-05-28 19:02 | Operative Note - Dictated ---
DATE OF OPERATION: 05/28/2017 PREOPERATIVE DIAGNOSIS: Acute cholecystitis. POSTOPERATIVE DIAGNOSIS: Acute cholecystitis. PROCEDURE: Laparoscopic cholecystectomy. SURGEON: Yobany Goldstein M.D. COIL INSPECTOR: Dr. Guzman Roman. ANESTHESIA: General endotracheal. ANESTHESIOLOGIST: Anjel Rothman M.D. Indications For Surgery: This 62-year-old female, presented to the hospital with a two-day history of severe upper abdominal pain accompanied by nausea. The patient underwent an ultrasound examination that revealed a thick dilated gallbladder. Her liver enzymes were surprisingly normal. She underwent a HIDA scan on the morning of surgery, which did not visualize the gallbladder. She was advised to undergo a laparoscopic cholecystectomy, possible open cholecystectomy. The nature risks and benefits of the procedure were explained. Operative Findings: Exploration of the abdominal cavity revealed severe adhesions in the right upper quadrant and right mid abdomen. The gallbladder had some gangrenous patches on the wall, but fortunately was not perforated. The liver was normal in size and texture. There were extensive adhesions to the undersurface of the liver with an inflammatory rind caused by the omentum adjacent to the gallbladder. Operative Technique: With the patient in the supine position after induction of adequate general anesthesia, the abdomen was prepped and draped in sterile fashion. A small transverse incision was made just below the umbilicus. The subcutaneous tissue was divided by sharp dissection with a scalpel. The rectus fascia was incised at the midline. The peritoneum was incised bluntly entering the abdominal cavity and an 11 mm Gabo trocar was introduced. The abdomen was insufflated with carbon dioxide. Inspection of the abdomen revealed there was marked distortion of the upper abdomen and markedly thickened falciform, which precluded placement of the subxiphoid port. A space was noted on the right mid abdomen and a 5 mm trocar was introduced. With the help of a suction trocar with electrocautery, the blunt adhesions to the anterior edge of the liver were taken down. Adhesions to the falciform were also taken down this time allowing for placement of a 11 mm trocar in the subxiphoid area slightly to the right of the midline. An adhesion from the falciform to the right lobe of the liver was dissected, hemoclipped, and divided with electrocautery in order to obtain space for dissection. The dilated gallbladder was aspirated with a suction trocar. The fundus of the gallbladder was grasped with a ratcheted grasper and elevated. The neck of the gallbladder was grasped with a second grasper through the mid 5 mm port. The neck of the gallbladder was slowly dissected with by blunt dissection and electrocautery. The cystic duct was identified. A window was made between the subhepatic space and the cystic duct. The cystic duct was slowly skeletonized. The cystic duct was doubly hemoclipped and divided. The cystic artery was then identified and this was found to be somewhat shortened. The junction of the cystic artery and the right hepatic artery was identified. The cystic artery was doubly hemoclipped and divided. The gallbladder was slowly dissected off of the liver bed by blunt dissection and electrocautery. The gallbladder was removed through the subxiphoid port with the help of an EndoCatch apparatus. The right subphrenic space was irrigated and aspirated. The right subhepatic space was irrigated and aspirated. There was some oozing from a small capsular tear on the posterior aspect of the right lobe of the liver. This was cauterized and the piece of Surgicel gauze was placed in the area. The second piece of Surgicel gauze was placed in the gallbladder fossa. A 15-Kinyarwanda Dirk drain was placed through the lateral 5 mm port and placed along the right subhepatic space. The drain was secured to the skin with a 2-0 nylon suture. The subxiphoid port was closed with interrupted [id number] 0 Vicryl sutures. The infraumbilical trocar site was closed with a 0 Vicryl [id number] fascial suture followed by a 4-0 Monocryl subcuticular stitch. The subxiphoid incision was closed with a running 4-0 Monocryl subcuticular stitch. The remaining 5 mm puncture wound was closed with a 4-0 Monocryl subcuticular stitch. The wounds were injected with 0.25 Marcaine with epinephrine solution. Sterile dressings were applied. The patient tolerated the procedure well and was returned to the recovery room in stable condition. The estimated blood loss was 100 mL. Yobany Goldstein M.D. DR: ANTONIO JOB#: [id number] CC:
[2017-05-28] MEDS: Losartan 50mg tab ORAL SCH (21:12)
--- NOTE | 2017-05-28 23:13 | Nephrology Progress Note ---
Assessment/Plan Problem List: (1) Cholecystitis Assessment: s/p lap choley (2) Abdominal pain (3) Gall stones Plan Abx per ID. F/u recs per surgery. pain management. IVF. Subjective Subjective s/p lap choley. Objective Objective Last 24 Hour Vital Signs Date Time Temp Pulse Resp B/P (MAP) Pulse Ox O2 Delivery O2 Flow Rate FiO2 05/28/17 21:12 155/95 05/28/17 20:03 98.7 94 19 171/108 98 Nasal Cannula 2.0 05/28/17 16:00 98 05/28/17 16:00 98.2 72 21 150/77 97 Room Air 05/28/17 13:53 93 20 149/99 100 Nasal Cannula 3.0 05/28/17 13:48 93 20 156/100 100 Nasal Cannula 3.0 05/28/17 13:41 164/102 05/28/17 13:41 94 20 164/102 100 Nasal Cannula 3.0 05/28/17 13:27 90 20 170/108 100 Simple Mask 8.0 05/28/17 13:11 180/115 05/28/17 13:11 99 20 180/115 100 Simple Mask 8.0 05/28/17 12:58 100 20 178/113 100 Simple Mask 8.0 05/28/17 12:54 97.4 110 20 168/110 100 Simple Mask 8.0 05/28/17 12:54 110 16 100 05/28/17 08:00 93 05/28/17 04:00 90 05/28/17 04:00 97.1 91 24 145/92 98 Room Air 05/28/17 00:00 89 05/28/17 00:00 97.5 95 24 150/76 95 Room Air Intake and Output 05/28/17 05/29/17 19:00 07:00 Intake Total 1750 ml Output Total 335 ml Balance 1415 ml IV Total 1750 ml Output Drainage Total 260 ml Estimated Blood Loss 75 ml # Voids 2 Laboratory Tests 05/28/17 10:00: White Blood Count 23.7*H, Red Blood Count 4.19L, Hemoglobin 12.2, Hematocrit 37.8, Mean Corpuscular Volume 90, Mean Corpuscular Hemoglobin 29.2, Mean Corpuscular Hemoglobin Concent 32.4, Red Cell Distribution Width 11.2L, Platelet Count 133L, Mean Platelet Volume 12.3H, Neutrophils (%) (Auto) , Lymphocytes (%) (Auto) , Monocytes (%) (Auto) , Eosinophils (%) (Auto) , Basophils (%) (Auto) , Differential Total Cells Counted 100, Neutrophils % ( Manual) 86H, Lymphocytes % (Manual) 4L, Monocytes % (Manual) 7, Eosinophils % ( Manual) 0, Basophils % (Manual) 0, Band Neutrophils 3, Platelet Estimate DecreasedL, Platelet Morphology Normal, Sodium Level 138, Potassium Level 4.0, Chloride Level 98, Carbon Dioxide Level 29, Anion Gap 11, Blood Urea Nitrogen 11 , Creatinine 0.6, Estimat Glomerular Filtration Rate > 60, Glucose Level 94, Calcium Level 9.0, Total Bilirubin 0.7, Aspartate Amino Transf (AST/SGOT) 25, Alanine Aminotransferase (ALT/SGPT) 18, Alkaline Phosphatase 39, Total Protein 6.6, Albumin 3.2L, Globulin 3.4, Albumin/Globulin Ratio 0.9L, Thyroid Stimulating Hormone (TSH) 1.600 Height (Feet): 5 Height (Inches): 4.00 Weight (Pounds): 122 General Appearance: no apparent distress Cardiovascular: normal rate, regular rhythm Respiratory/Chest: lungs clear Abdomen: soft Extremities: non-pitting Neurologic: alert DORIAN ISRAEL May 28, 2017 23:12
--- NOTE | 2017-05-29 00:15 | Consultation ---
DATE OF CONSULTATION: 05/28/2017 INFECTIOUS DISEASE CONSULTATION CONSULTING PHYSICIAN: Riya Franco M.D. REQUESTING PHYSICIAN: Salvador Lindsey M.D. Reason For Consultation: Sepsis, cholecystitis, recommendation for antibiotic treatment. History of Present Illness: The patient is a 62-year-old female with no significant past medical history, who presented to [facility] Emergency Room with progressive abdominal pain, which started the night before yesterday. The patient started having pain in the right upper quadrant, was 10/10, was constant after she had her meal. This was associated with nausea and vomiting. There was no blood in her vomits. No diarrhea. The patient had chills. She was sweaty and did not feel well, so she was brought in to the emergency room for evaluation and management. The patient was found to have significant leukocytosis with white count around 30,000. Her ultrasound of the abdomen showed evidence of cholecystitis, so she was admitted to the hospital, started on Levaquin and Flagyl, and I was consulted by the primary provider for antibiotic treatment and further management due to her sepsis and significant leukocytosis. PAST MEDICAL HISTORY: Negative. PAST SURGICAL HISTORY: Negative. Medications: The patient is on Levaquin and Flagyl IV. For the rest of her medications, please refer to MAR. ALLERGIES: She has no known drug allergy. Social History: The patient lives alone in apartment. She used drugs in the past, but not any more. Denied using any tobacco or alcohol. FAMILY HISTORY: Not contributory. Review of Systems: Fourteen point of system reviewed and were all negative apart from the ones I mentioned above for my history and physical. PHYSICAL EXAMINATION: General: A middle-aged female, lying in bed, awake, alert, complaining of severe pain in the abdomen. Vital Signs: Temperature 98.2 degrees, pulse 72, respirations 21, blood pressure 150/77, and saturation 97% on room air. HEENT: Normocephalic and atraumatic. Pupils reactive to light. Moist oral mucosa. No exudate. No thrush. NECK: Supple. No lymphadenopathy. No JVD. CARDIOVASCULAR: Regular rate and rhythm. No murmur. No gallop. LUNGS: Clear bilaterally. Diminished breathing sound at the bases. Abdomen: Soft. Tender in the right upper quadrant. No organomegaly. No ascites. No rebound. EXTREMITIES: No edema or cyanosis. Laboratory And Diagnostic Data: Labs showed white count of 23,700 down from 30,7000, hemoglobin of 12.2, and platelet count of 133,000. BUN of 21 and creatinine of 1. AST of 26 and ALT of 24. Imaging, ultrasound of the abdomen showed gallbladder sludge and small gallstones, markedly thickened gallbladder wall with positive Soliz sign concerning for acute cholecystitis. HIDA scan showed cystic duct obstruction and acute cholecystitis. ASSESSMENT AND PLAN: 1. Acute cholecystitis, suspect complication with phlegmon and necrosis. We will switch antibiotics to Zosyn empiric treatment pending surgical resection for source control. 2. Severe sepsis due to acute cholecystitis complicated with phlegmon. We will switch antibiotics to Zosyn pending culture result of the blood. Recommend surgical resection. 3. Gallstone with acute cholecystitis. Needs surgical evaluation for cholecystectomy. Surgery is already following. Recommend continuous antibiotic treatment at least for 48 hours after her surgical resection. Infectious diseases will continue to follow. Riya Franco M.D. DR: KEVIN JOB#: [id number] CC:
[2017-05-29] MEDS: Piperacillin/Tazobactam 3.375 GM in D5W 110 ML IVPB SCH ×3 (00:22→16:34)
[2017-05-29 04:08] VITALS: BP 151/94
[2017-05-29] MEDS: metroNIDAZOLE 500mg 100 ML IVPB SCH ×3 (05:43→22:00)
[2017-05-29 06:58] LABS: MEAN CORPUSCULAR HGB CONC 34.4 G/DL (32.0-36.0); MEAN CORPUSCULAR VOLUME 90 FL (80-99); MEAN PLATELET VOLUME 12.2 FL (6.5-10.1); PLATELET COUNT 160 K/UL (150-450); RED CELL DISTRIBUTION WIDTH 11.4 % (11.6-14.8); WHITE BLOOD COUNT 19.1 K/UL (4.8-10.8)
[2017-05-29 07:15] LABS: ALANINE AMINOTRANSFERASE 40 U/L (3-33); ALBUMIN/GLOBULIN RATIO 1.1 (1.0-2.7); ANION GAP 12 (5-15); ASPARTATE AMINO TRANSFERASE 109 U/L (5-40); CALCIUM 8.7 mg/dL (8.6-10.2); CARBON DIOXIDE 28 mEQ/L (20-30); CHLORIDE 100 mEQ/L (98-107); CREATININE 0.6 mg/dL (0.5-0.9); GLOMERULAR FILTRATION RATE > 60 mL/min (>60); HEMOLYSIS 12; POTASSIUM 4.4 mEQ/L (3.4-4.9); SODIUM 140 mEQ/L (135-145); TOTAL PROTEIN 5.9 g/dL (6.6-8.7)
[2017-05-29 08:00] VITALS: BP 133/82
--- NOTE | 2017-05-29 08:50 | 48 Hour Post Anesthesia Eval ---
Post Anesthesia Evaluation Procedure: Laparoscopic Cholecystectomy Date of Evaluation: May 29, 2017 Airway: patent Nausea: No Vomiting: No Pain Intensity: 2 Hydration Status: adequate Cardiopulmonary Status: at baseline Mental Status/LOC: patient returned to baseline Post-Anesthesia Complications: 0 Follow-up care needed: N/A - further care as per primary team TIERA GARVIN M.D. May 29, 2017 08:50
[2017-05-29] MEDS: Losartan 50mg tab ORAL SCH ×2 (08:56→20:39)
[2017-05-29] MEDS: Docusate 100mg cap ORAL SCH ×2 (08:57→20:37)
--- NOTE | 2017-05-29 08:59 | General Progress Note ---
Progress Note Progress Note Surgery: doing well. mild abdominal pain at incisions but much improved as compared to before. tolerating clears but minimal appetite. no n/v/f/c. labs improving. exam stable. drain output serosang. POD #1 s/p lap rishabh for gangrenous cholecystitis -diet as tolerated -ambulate and oob -incentive spirometry -rx as written -drain care and management -trend labs. Raymond Roman May 29, 2017 08:59
[2017-05-29 10:08] LABS: BAND NEUTROPHILS % (MANUAL) 3 % (0-8); BASOPHILS % (MANUAL) 0 % (0-2); EOSINOPHILS % (MANUAL) 0 % (0-3); LYMPHOCYTES % (MANUAL) 6 % (20-45); NEUTROPHILS % (MANUAL) 83 % (45-75); PLATELET ESTIMATE ADEQUATE; PLATELET MORPHOLOGY NORMAL; TOTAL CELLS COUNTED 100
[2017-05-29] MEDS: D5 1/2NS w/KCl 20mEq 1,000 ML IV SCH (11:37)
[2017-05-29 11:50] VITALS: BP 127/87
[2017-05-29 16:00] VITALS: BP 115/70
--- NOTE | 2017-05-29 17:17 | Infectious Diseases Prog Note ---
Assessment/Plan Problems: (1) Cholecystitis Assessment & Plan: complicated with sepsis, on zosyn empirically pending blood culture results, had surgical resection for source control (2) Severe sepsis Assessment & Plan: due to cholecystitis , on zosyn, pending culture results (3) Gall stones Assessment & Plan: with acute cholecystitis, S/P surgical resection , surgery is following Subjective Constitutional: Reports: no symptoms HEENT: Reports: no symptoms Respiratory: Reports: no symptoms Breasts: Reports: no symptoms Cardiovascular: Reports: no symptoms Gastrointestinal/Abdominal: Reports: bloating, other - abdominal pain Genitourinary: Reports: no symptoms Neurologic: Reports: no symptoms Psychiatric: Reports: no symptoms Skin: Reports: no symptoms Endocrine: Reports: no symptoms Hematologic: Reports: no symptoms Musculoskeletal: Reports: no symptoms Allergies: Coded Allergies: No Known Allergies (Unverified , 01/04/14) Objective Vital Signs Last 24 Hour Vital Signs Date Time Temp Pulse Resp B/P (MAP) Pulse Ox O2 Delivery O2 Flow Rate FiO2 05/29/17 16:00 97.2 62 21 115/70 98 Nasal Cannula 2.0 05/29/17 15:33 67 05/29/17 11:50 97.0 72 18 127/87 100 Nasal Cannula 2.0 05/29/17 11:35 69 05/29/17 08:57 65 133/82 05/29/17 08:56 133/82 05/29/17 08:00 97.9 65 20 133/82 99 Nasal Cannula 2.0 05/29/17 07:34 69 05/29/17 04:08 98.6 64 16 151/94 98 Nasal Cannula 2.0 05/29/17 04:00 66 05/29/17 00:00 80 05/28/17 23:55 98.3 85 18 163/103 97 Nasal Cannula 2.0 05/28/17 21:12 155/95 05/28/17 20:03 98.7 94 19 171/108 98 Nasal Cannula 2.0 05/28/17 20:00 102 Height (Feet): 5 Height (Inches): 4.00 Weight (Pounds): 122 General Appearance: WD/WN, no acute distress HEENT: normocephalic, atraumatic, anicteric, mucous membranes moist, PERRL, EOMI, pharynx normal, supple, no JVD Respiratory/Chest: chest wall non-tender, lungs clear, normal breath sounds, no respiratory distress, no accessory muscle use Cardiovascular: normal peripheral pulses, normal rate, regular rhythm, no gallop/murmur, no JVD Abdomen: normal bowel sounds, no organomegaly, no mass, no scars, distended, tender Extremities: no cyanosis, no clubbing Skin: no rash, no lesions, no ulcers Neurologic/Psychiatric: alert, oriented x 3, responsive Lymphatic: no neck adenopathy, no groin adenopathy Microbiology Date/Time Source Procedure Growth Status 05/27/17 13:35 Blood Blood Culture - Preliminary NO GROWTH AFTER 24 HOURS Resulted 05/27/17 13:25 Blood Blood Culture - Preliminary NO GROWTH AFTER 24 HOURS Resulted Laboratory Tests Test 05/29/17 04:50 05/29/17 06:50 White Blood Count 19.1 K/UL (4.8-10.8) H Red Blood Count 3.80 M/UL (4.20-5.40) L Hemoglobin 11.8 G/DL (12.0-16.0) L Hematocrit 34.2 % (37.0-47.0) L Mean Corpuscular Volume 90 FL (80-99) Mean Corpuscular Hemoglobin 31.0 PG (27.0-31.0) Mean Corpuscular Hemoglobin Concent 34.4 G/DL (32.0-36.0) Red Cell Distribution Width 11.4 % (11.6-14.8) L Platelet Count 160 K/UL (150-450) Mean Platelet Volume 12.2 FL (6.5-10.1) H Neutrophils (%) (Auto) % (45.0-75.0) Lymphocytes (%) (Auto) % (20.0-45.0) Monocytes (%) (Auto) % (1.0-10.0) Eosinophils (%) (Auto) % (0.0-3.0) Basophils (%) (Auto) % (0.0-2.0) Differential Total Cells Counted 100 Neutrophils % (Manual) 83 % (45-75) H Lymphocytes % (Manual) 6 % (20-45) L Monocytes % (Manual) 8 % (1-10) Eosinophils % (Manual) 0 % (0-3) Basophils % (Manual) 0 % (0-2) Band Neutrophils 3 % (0-8) Platelet Estimate Adequate Platelet Morphology Normal Red Blood Cell Morphology Normal Sodium Level 140 mEQ/L (135-145) Potassium Level 4.4 mEQ/L (3.4-4.9) Chloride Level 100 mEQ/L (98-107) Carbon Dioxide Level 28 mEQ/L (20-30) Anion Gap 12 (5-15) Blood Urea Nitrogen 11 mg/dL (7-23) Creatinine 0.6 mg/dL (0.5-0.9) Estimat Glomerular Filtration Rate > 60 mL/min (>60) Glucose Level 126 mg/dL (74-106) H Calcium Level 8.7 mg/dL (8.6-10.2) Total Bilirubin 0.5 mg/dL (0.0-1.2) Aspartate Amino Transf (AST/SGOT) 109 U/L (5-40) H Alanine Aminotransferase (ALT/SGPT) 40 U/L (3-33) H Alkaline Phosphatase 45 U/L (35-104) Total Protein 5.9 g/dL (6.6-8.7) L Albumin 3.2 g/dL (3.5-5.2) L Globulin 2.7 g/dL Albumin/Globulin Ratio 1.1 (1.0-2.7) Current Medications Medications (Trade) Dose Ordered Sig/Thalia Route PRN Reason Start Time Stop Time Status Last Admin Dose Admin Amlodipine Besylate (Norvasc) 5 mg DAILY ORAL 05/27/17 19:30 06/26/17 19:29 05/29/17 08:57 Dextrose (Dextrose 50%) STAT PRN IV Hypoglycemia 05/27/17 18:30 06/26/17 18:29 Dextrose/ Electrolytes 1,000 ml @ 75 mls/hr [id number] IV 05/27/17 19:30 06/26/17 19:29 05/29/17 11:37 Docusate Sodium (Colace) 100 mg EVERY 12 HOURS ORAL 05/27/17 21:00 06/26/17 20:59 05/29/17 08:57 Hydromorphone HCl (Dilaudid) 1.5 mg Q4H PRN IVP Pain Scale (6-10) 05/28/17 19:00 06/04/17 18:59 05/29/17 15:04 Lorazepam (Ativan 2mg/ml 1ml) 1 mg Q4H PRN IV For Anxiety 05/27/17 19:00 06/03/17 18:59 Losartan Potassium (Cozaar) 50 mg Q12HR ORAL 05/28/17 21:00 06/27/17 20:59 05/29/17 08:56 Methadone HCl (Methadone HCl) 5 mg DAILY ORAL 05/28/17 16:00 06/04/17 15:59 05/29/17 08:59 Methadone HCl (Methadone HCl) 60 mg DAILY ORAL 05/28/17 16:00 06/04/17 15:59 05/29/17 08:56 Metronidazole 100 ml @ 100 mls/hr Q8HR IVPB 05/27/17 23:30 06/03/17 23:29 05/29/17 14:58 Ondansetron HCl (Zofran) 4 mg Q4H PRN IVP Nausea & Vomiting 05/27/17 18:30 06/26/17 18:29 Piperacillin Sod/ Tazobactam Sod 3.375 gm/Dextrose 110 ml @ 27.5 mls/hr Q8HR@0000,0800,1600 IVPB 05/29/17 00:00 06/04/17 11:59 05/29/17 16:34 Zolpidem Tartrate (Ambien) 5 mg DAILYPRN PRN ORAL Insomnia 05/27/17 18:30 06/03/17 18:29 Riya Franco M.D. May 29, 2017 17:17
[2017-05-29 20:00] VITALS: BP 112/70
--- NOTE | 2017-05-29 22:10 | Nephrology Progress Note ---
Assessment/Plan Problem List: (1) Cholecystitis (2) Severe sepsis (3) Abdominal pain (4) anxiety (5) Polysubstance abuse (6) Gall stones (7) S/P laparoscopic cholecystectomy Plan Pain management f/u with surg recommendation Continue abx per ID Monitor lytes, correct prn Continue methadone DVT prophylaxis PPI AM labs Subjective Constitutional: Denies: no symptoms, chills, diaphoresis, fever, malaise, weakness, other HEENT: Denies: no symptoms, eye pain, blurred vision, tearing, double vision, ear pain, ear discharge, nose pain, nose congestion, throat pain, throat swelling, mouth pain, mouth swelling, other Genitourinary: Denies: no symptoms, burning, discharge, frequency, flank pain, hematuria, incontinence, pain, urgency, other Neurologic/Psychiatric: Denies: no symptoms, anxiety, depressed, emotional problems, headache, numbness, paresthesia, pre-existing deficit, seizure, tingling, tremors, weakness, other Subjective In bed, in no apparent distress. Objective Objective Last 24 Hour Vital Signs Date Time Temp Pulse Resp B/P (MAP) Pulse Ox O2 Delivery O2 Flow Rate FiO2 05/29/17 21:07 97.7 05/29/17 20:05 58 05/29/17 20:00 97.7 57 18 112/70 97 Nasal Cannula 2.0 05/29/17 16:00 97.2 62 21 115/70 98 Nasal Cannula 2.0 05/29/17 15:33 67 05/29/17 11:50 97.0 72 18 127/87 100 Nasal Cannula 2.0 05/29/17 11:35 69 05/29/17 08:57 65 133/82 05/29/17 08:56 133/82 05/29/17 08:00 97.9 65 20 133/82 99 Nasal Cannula 2.0 05/29/17 07:34 69 05/29/17 04:08 98.6 64 16 151/94 98 Nasal Cannula 2.0 05/29/17 04:00 66 05/29/17 00:00 80 05/28/17 23:55 98.3 85 18 163/103 97 Nasal Cannula 2.0 Intake and Output 05/29/17 05/30/17 19:00 07:00 Intake Total 1669.40 ml 205.0 ml Output Total 270 ml Balance 1399.40 ml 205.0 ml Intake Oral 500 ml IV Total 1169.40 ml 205.0 ml Output Urine Total 200 ml Drainage Total 70 ml # Voids 4 Laboratory Tests 05/29/17 04:50: White Blood Count 19.1H, Red Blood Count 3.80L, Hemoglobin 11.8L, Hematocrit 34.2L, Mean Corpuscular Volume 90, Mean Corpuscular Hemoglobin 31.0, Mean Corpuscular Hemoglobin Concent 34.4, Red Cell Distribution Width 11.4L, Platelet Count 160, Mean Platelet Volume 12.2H, Neutrophils (%) (Auto) , Lymphocytes (%) (Auto) , Monocytes (%) (Auto) , Eosinophils (%) (Auto) , Basophils (%) (Auto) , Differential Total Cells Counted 100, Neutrophils % ( Manual) 83H, Lymphocytes % (Manual) 6L, Monocytes % (Manual) 8, Eosinophils % ( Manual) 0, Basophils % (Manual) 0, Band Neutrophils 3, Platelet Estimate Adequate, Platelet Morphology Normal, Red Blood Cell Morphology Normal 05/29/17 06:50: Sodium Level 140, Potassium Level 4.4, Chloride Level 100, Carbon Dioxide Level 28, Anion Gap 12, Blood Urea Nitrogen 11, Creatinine 0.6, Estimat Glomerular Filtration Rate > 60, Glucose Level 126H, Calcium Level 8.7, Total Bilirubin 0.5 , Aspartate Amino Transf (AST/SGOT) 109H, Alanine Aminotransferase (ALT/SGPT) 40H, Alkaline Phosphatase 45, Total Protein 5.9L, Albumin 3.2L, Globulin 2.7, Albumin/Globulin Ratio 1.1 Height (Feet): 5 Height (Inches): 4.00 Weight (Pounds): 122 General Appearance: no apparent distress EENT: PERRL/EOMI, normal ENT inspection Neck: non-tender, normal alignment Cardiovascular: normal rate, regular rhythm, no JVD Respiratory/Chest: lungs clear, normal breath sounds, no respiratory distress Abdomen: soft, tender Extremities: non-tender, normal inspection Neurologic: alert, oriented x 3, responsive, normal mood/affect Milka Hutson N.P. May 29, 2017 22:10
[2017-05-30] VITALS: BP 130/66
[2017-05-30] MEDS: D5 1/2NS w/KCl 20mEq 1,000 ML IV SCH ×2 (00:01→14:34)
--- NOTE | 2017-05-30 02:00 | Progress Note ---
Subjective: The patient is a 62-year-old white female, who came to the emergency room for having abdominal pain, nausea, and vomiting. The patient was doing better. She is status post cholecystectomy. She has no fever. No chills. OBJECTIVE: Vital Signs: Blood pressure is 130/70, pulse 60s, respirations 18, and no fever. HEENT: NAD. CHEST: Bilateral clear. CARDIOVASCULAR: Regular rhythm. No gallop. No murmur. ABDOMEN: Soft. EXTREMITIES: No CCE. NEUROLOGICAL: No focal deficit. GENITOURINARY: Deferred. LABORATORY AND DIAGNOSTIC DATA: Laboratories are pending. ASSESSMENT: 1. Acute cholecystitis. 2. Status post cholecystectomy. 3. Nausea and vomiting. 4. Dehydration. Plan: We will continue IV fluid, continue antibiotics, NPO, and continue supportive treatment. Pain management. Jarred Giraldo M.D. DR: TRAN JOB#: [id number] CC:
[2017-05-30 04:00] VITALS: BP 119/73
[2017-05-30] MEDS: metroNIDAZOLE 500mg 100 ML IVPB SCH ×3 (05:30→21:37)
[2017-05-30 08:07] LABS: BASOPHILS % (AUTO) 0.2 % (0.0-2.0); MEAN CORPUSCULAR HEMOGLOBIN 29.6 PG (27.0-31.0); MEAN CORPUSCULAR HGB CONC 32.7 G/DL (32.0-36.0); MEAN CORPUSCULAR VOLUME 91 FL (80-99); MEAN PLATELET VOLUME 10.4 FL (6.5-10.1); MONOCYTES % (AUTO) 7.8 % (1.0-10.0); PLATELET COUNT 146 K/UL (150-450); RED BLOOD COUNT 3.47 M/UL (4.20-5.40); RED CELL DISTRIBUTION WIDTH 11.7 % (11.6-14.8)
[2017-05-30 08:22] VITALS: BP 131/83
[2017-05-30 08:25] LABS: ANION GAP 6 (5-15); CALCIUM 8.1 mg/dL (8.6-10.2); CARBON DIOXIDE 34 mEQ/L (20-30); CHLORIDE 102 mEQ/L (98-107); CREATININE 0.6 mg/dL (0.5-0.9); GLOMERULAR FILTRATION RATE > 60 mL/min (>60); HEMOLYSIS 2; POTASSIUM 3.5 mEQ/L (3.4-4.9); SODIUM 142 mEQ/L (135-145)
[2017-05-30] MEDS: Piperacillin/Tazobactam 3.375 GM in D5W 110 ML IVPB SCH ×4 (08:37→16:47)
[2017-05-30] MEDS: Losartan 50mg tab ORAL SCH ×2 (08:39→21:37)
[2017-05-30] MEDS: Docusate 100mg cap ORAL SCH ×2 (08:39→21:37)
[2017-05-30] MEDS ORDERED: Docusate 100mg cap ORAL SCH (09:00)
--- NOTE | 2017-05-30 11:02 | General Surgery Progress Note ---
General Surgery-Progress Note Subjective Symptoms: improved Objective Last 24 Hour Vital Signs Date Time Temp Pulse Resp B/P (MAP) Pulse Ox O2 Delivery O2 Flow Rate FiO2 05/30/17 08:40 73 131/83 05/30/17 08:39 131/83 05/30/17 08:22 98.2 73 20 131/83 98 Nasal Cannula 2.0 05/30/17 08:00 71 05/30/17 06:58 97.0 05/30/17 04:00 97.0 57 20 119/73 98 Nasal Cannula 2.0 05/30/17 04:00 60 05/30/17 00:00 97.0 66 20 130/66 96 Nasal Cannula 2.0 05/29/17 23:27 61 05/29/17 20:05 58 05/29/17 20:00 97.7 57 18 112/70 97 Nasal Cannula 2.0 05/29/17 16:00 97.2 62 21 115/70 98 Nasal Cannula 2.0 05/29/17 15:33 67 05/29/17 11:50 97.0 72 18 127/87 100 Nasal Cannula 2.0 05/29/17 11:35 69 I&O Intake and Output 05/30/17 05/31/17 19:00 07:00 Intake Total 380 ml Balance 380 ml Intake Oral 380 ml Dressing: dry Wound: clean Drains: bryce - 110 ml serosanguinous Cardiovascular: RSR Respiratory: clear Abdomen: distended Extremities: no edema Laboratory Tests Test 05/30/17 07:28 White Blood Count 14.0 K/UL (4.8-10.8) H Red Blood Count 3.47 M/UL (4.20-5.40) L Hemoglobin 10.3 G/DL (12.0-16.0) L Hematocrit 31.4 % (37.0-47.0) L Mean Corpuscular Volume 91 FL (80-99) Mean Corpuscular Hemoglobin 29.6 PG (27.0-31.0) Mean Corpuscular Hemoglobin Concent 32.7 G/DL (32.0-36.0) Red Cell Distribution Width 11.7 % (11.6-14.8) Platelet Count 146 K/UL (150-450) L Mean Platelet Volume 10.4 FL (6.5-10.1) H Neutrophils (%) (Auto) 79.0 % (45.0-75.0) H Lymphocytes (%) (Auto) 13.0 % (20.0-45.0) L Monocytes (%) (Auto) 7.8 % (1.0-10.0) Eosinophils (%) (Auto) 0.0 % (0.0-3.0) Basophils (%) (Auto) 0.2 % (0.0-2.0) Sodium Level 142 mEQ/L (135-145) Potassium Level 3.5 mEQ/L (3.4-4.9) Chloride Level 102 mEQ/L (98-107) Carbon Dioxide Level 34 mEQ/L (20-30) H Anion Gap 6 (5-15) Blood Urea Nitrogen 12 mg/dL (7-23) Creatinine 0.6 mg/dL (0.5-0.9) Estimat Glomerular Filtration Rate > 60 mL/min (>60) Glucose Level 89 mg/dL (74-106) Calcium Level 8.1 mg/dL (8.6-10.2) L Assessment Additional Comments Pt has an ileus due to inflammation from gangrenous cholecystitis Plan Additional Comments We will keep her on clear liquids and will begin ambulation Yobany Goldstein MD May 30, 2017 11:02
[2017-05-30 11:40] VITALS: BP 122/60
--- NOTE | 2017-05-30 15:40 | Infectious Diseases Prog Note ---
Assessment/Plan Problems: (1) Cholecystitis Assessment & Plan: complicated with sepsis, on zosyn empirically pending blood culture results, had surgical resection for source control (2) Severe sepsis Assessment & Plan: due to cholecystitis , on zosyn, pending culture results (3) Gall stones Assessment & Plan: with acute cholecystitis, S/P surgical resection , surgery is following Subjective Constitutional: Reports: no symptoms HEENT: Reports: no symptoms Respiratory: Reports: no symptoms Breasts: Reports: no symptoms Cardiovascular: Reports: no symptoms Gastrointestinal/Abdominal: Reports: bloating, other - pain Genitourinary: Reports: no symptoms Neurologic: Reports: no symptoms Psychiatric: Reports: no symptoms Skin: Reports: no symptoms Endocrine: Reports: no symptoms Hematologic: Reports: no symptoms Allergies: Coded Allergies: No Known Allergies (Unverified , 01/04/14) Objective Vital Signs Last 24 Hour Vital Signs Date Time Temp Pulse Resp B/P (MAP) Pulse Ox O2 Delivery O2 Flow Rate FiO2 05/30/17 11:40 98.7 75 20 122/60 92 Room Air 05/30/17 08:40 73 131/83 05/30/17 08:39 131/83 05/30/17 08:22 98.2 73 20 131/83 98 Nasal Cannula 2.0 05/30/17 08:00 71 05/30/17 06:58 97.0 05/30/17 04:00 97.0 57 20 119/73 98 Nasal Cannula 2.0 05/30/17 04:00 60 05/30/17 00:00 97.0 66 20 130/66 96 Nasal Cannula 2.0 05/29/17 23:27 61 05/29/17 20:05 58 05/29/17 20:00 97.7 57 18 112/70 97 Nasal Cannula 2.0 05/29/17 16:00 97.2 62 21 115/70 98 Nasal Cannula 2.0 Height (Feet): 5 Height (Inches): 4.00 Weight (Pounds): 122 General Appearance: WD/WN, no acute distress HEENT: normocephalic, atraumatic, anicteric, mucous membranes moist, PERRL, EOMI, pharynx normal, supple, no JVD Respiratory/Chest: chest wall non-tender, lungs clear, normal breath sounds, no respiratory distress, no accessory muscle use Cardiovascular: normal peripheral pulses, normal rate, regular rhythm, no gallop/murmur, no JVD Abdomen: normal bowel sounds, no mass, no scars Extremities: no cyanosis, no clubbing Skin: no rash, no lesions Neurologic/Psychiatric: alert, oriented x 3, responsive Lymphatic: no neck adenopathy, no groin adenopathy Laboratory Tests Test 05/30/17 07:28 White Blood Count 14.0 K/UL (4.8-10.8) H Red Blood Count 3.47 M/UL (4.20-5.40) L Hemoglobin 10.3 G/DL (12.0-16.0) L Hematocrit 31.4 % (37.0-47.0) L Mean Corpuscular Volume 91 FL (80-99) Mean Corpuscular Hemoglobin 29.6 PG (27.0-31.0) Mean Corpuscular Hemoglobin Concent 32.7 G/DL (32.0-36.0) Red Cell Distribution Width 11.7 % (11.6-14.8) Platelet Count 146 K/UL (150-450) L Mean Platelet Volume 10.4 FL (6.5-10.1) H Neutrophils (%) (Auto) 79.0 % (45.0-75.0) H Lymphocytes (%) (Auto) 13.0 % (20.0-45.0) L Monocytes (%) (Auto) 7.8 % (1.0-10.0) Eosinophils (%) (Auto) 0.0 % (0.0-3.0) Basophils (%) (Auto) 0.2 % (0.0-2.0) Sodium Level 142 mEQ/L (135-145) Potassium Level 3.5 mEQ/L (3.4-4.9) Chloride Level 102 mEQ/L (98-107) Carbon Dioxide Level 34 mEQ/L (20-30) H Anion Gap 6 (5-15) Blood Urea Nitrogen 12 mg/dL (7-23) Creatinine 0.6 mg/dL (0.5-0.9) Estimat Glomerular Filtration Rate > 60 mL/min (>60) Glucose Level 89 mg/dL (74-106) Calcium Level 8.1 mg/dL (8.6-10.2) L Current Medications Medications (Trade) Dose Ordered Sig/Thalia Route PRN Reason Start Time Stop Time Status Last Admin Dose Admin Amlodipine Besylate (Norvasc) 5 mg DAILY ORAL 05/27/17 19:30 06/26/17 19:29 05/30/17 08:40 Dextrose (Dextrose 50%) STAT PRN IV Hypoglycemia 05/27/17 18:30 06/26/17 18:29 Dextrose/ Electrolytes 1,000 ml @ 75 mls/hr [id number] IV 05/27/17 19:30 06/26/17 19:29 05/30/17 14:34 Docusate Sodium (Colace) 100 mg EVERY 12 HOURS ORAL 05/27/17 21:00 06/26/17 20:59 05/30/17 08:39 Hydromorphone HCl (Dilaudid) 1.5 mg Q4H PRN IVP Pain Scale (6-10) 05/28/17 19:00 06/04/17 18:59 05/30/17 06:28 Lorazepam (Ativan 2mg/ml 1ml) 1 mg Q4H PRN IV For Anxiety 05/27/17 19:00 06/03/17 18:59 Losartan Potassium (Cozaar) 50 mg Q12HR ORAL 05/28/17 21:00 06/27/17 20:59 05/30/17 08:39 Methadone HCl (Methadone HCl) 5 mg DAILY ORAL 05/28/17 16:00 06/04/17 15:59 05/30/17 08:40 Methadone HCl (Methadone HCl) 60 mg DAILY ORAL 05/28/17 16:00 06/04/17 15:59 05/30/17 08:38 Metronidazole 100 ml @ 100 mls/hr Q8HR IVPB 05/27/17 23:30 06/03/17 23:29 05/30/17 14:20 Ondansetron HCl (Zofran) 4 mg Q4H PRN IVP Nausea & Vomiting 05/27/17 18:30 06/26/17 18:29 Pantoprazole (Protonix) 40 mg DAILY ORAL 05/30/17 09:00 06/29/17 08:59 05/30/17 08:39 Piperacillin Sod/ Tazobactam Sod 3.375 gm/Dextrose 110 ml @ 27.5 mls/hr Q8HR@0000,0800,1600 IVPB 05/29/17 00:00 06/04/17 11:59 05/30/17 08:37 Zolpidem Tartrate (Ambien) 5 mg DAILYPRN PRN ORAL Insomnia 05/27/17 18:30 06/03/17 18:29 Riya Franco M.D. May 30, 2017 15:40
[2017-05-30] MEDS ORDERED: Tubing IV Secondary IV ONE (16:22)
[2017-05-30] MEDS ORDERED: NS 275ml ONE (16:22)
[2017-05-30 16:41] VITALS: BP 123/82
[2017-05-30 20:00] VITALS: BP 150/66
[2017-05-31] VITALS: BP 135/90
[2017-05-31] MEDS: D5 1/2NS w/KCl 20mEq 1,000 ML IV SCH ×2 (03:01→16:12)
[2017-05-31 04:00] VITALS: BP 137/86
[2017-05-31] MEDS: metroNIDAZOLE 500mg 100 ML IVPB SCH ×3 (05:19→22:00)
[2017-05-31] MEDS: Piperacillin/Tazobactam 3.375 GM in D5W 110 ML IVPB SCH ×4 (08:11→16:09)
[2017-05-31] MEDS: Docusate 100mg cap ORAL SCH ×2 (08:14→20:05)
[2017-05-31] MEDS: Losartan 50mg tab ORAL SCH ×2 (08:16→20:05)
[2017-05-31 08:38] VITALS: BP 122/88
--- NOTE | 2017-05-31 11:02 | General Progress Note ---
Progress Note Progress Note Surgery: doing well. no acute events. pain improved. tolerating clears and hungry. no n/v/f/c. passing flatus. no BM yet afebrile, HD stable, leukocytosis improved physical exam benign drain output minimal -d/c drain -diet as tolerated -d/c iv fluids once taking in good oral intake -ambulate and oob -incentive spirometry -d/c planning Raymond Roman May 31, 2017 11:02
[2017-05-31 12:00] VITALS: BP 128/83
--- NOTE | 2017-05-31 15:03 | Infectious Diseases Prog Note ---
Assessment/Plan Problems: (1) Cholecystitis Assessment & Plan: complicated with sepsis, continue zosyn empirically , blood culture is negative so far , had surgical resection for source control , monitor WBC (2) Severe sepsis Assessment & Plan: due to cholecystitis , on zosyn, pending culture results (3) Gall stones Assessment & Plan: with acute cholecystitis, S/P surgical resection , surgery is following Subjective Constitutional: Reports: no symptoms HEENT: Reports: no symptoms Respiratory: Reports: no symptoms Breasts: Reports: no symptoms Cardiovascular: Reports: no symptoms Gastrointestinal/Abdominal: Reports: no symptoms Genitourinary: Reports: no symptoms Neurologic: Reports: no symptoms Psychiatric: Reports: no symptoms Skin: Reports: no symptoms Endocrine: Reports: no symptoms Allergies: Coded Allergies: No Known Allergies (Unverified , 01/04/14) Objective Vital Signs Last 24 Hour Vital Signs Date Time Temp Pulse Resp B/P (MAP) Pulse Ox O2 Delivery O2 Flow Rate FiO2 05/31/17 12:00 65 05/31/17 12:00 99.6 69 17 128/83 98 Room Air 05/31/17 08:38 98.5 83 18 122/88 96 Room Air 05/31/17 08:16 137/86 05/31/17 08:15 65 137/86 05/31/17 08:00 77 05/31/17 04:00 98.1 65 18 137/86 97 Room Air 05/31/17 03:22 71 05/31/17 00:04 66 05/31/17 00:00 98.0 64 18 135/90 94 Room Air 05/30/17 21:37 150/66 05/30/17 20:00 97.8 76 18 150/66 95 Room Air 05/30/17 19:04 72 05/30/17 16:41 97.0 66 18 123/82 97 Room Air 05/30/17 16:00 68 Height (Feet): 5 Height (Inches): 4.00 Weight (Pounds): 122 General Appearance: WD/WN, no acute distress HEENT: normocephalic, atraumatic, anicteric, mucous membranes moist, PERRL, EOMI, pharynx normal, supple, no JVD Respiratory/Chest: chest wall non-tender, lungs clear, normal breath sounds, no respiratory distress, no accessory muscle use Cardiovascular: normal peripheral pulses, normal rate, regular rhythm, no gallop/murmur, no JVD Abdomen: normal bowel sounds, soft, non tender, no organomegaly, non distended , no mass, no scars Extremities: no cyanosis, no clubbing Skin: no rash, no lesions, no ulcers Neurologic/Psychiatric: alert, oriented x 3, responsive Lymphatic: no neck adenopathy Current Medications Medications (Trade) Dose Ordered Sig/Thalia Route PRN Reason Start Time Stop Time Status Last Admin Dose Admin Amlodipine Besylate (Norvasc) 5 mg DAILY ORAL 05/27/17 19:30 06/26/17 19:29 05/31/17 08:15 Dextrose (Dextrose 50%) STAT PRN IV Hypoglycemia 05/27/17 18:30 06/26/17 18:29 Dextrose/ Electrolytes 1,000 ml @ 75 mls/hr [id number] IV 05/27/17 19:30 06/26/17 19:29 05/31/17 03:01 Docusate Sodium (Colace) 100 mg EVERY 12 HOURS ORAL 05/27/17 21:00 06/26/17 20:59 05/31/17 08:14 Hydromorphone HCl (Dilaudid) 1.5 mg Q4H PRN IVP Pain Scale (6-10) 05/28/17 19:00 06/04/17 18:59 05/30/17 06:28 Lorazepam (Ativan 2mg/ml 1ml) 1 mg Q4H PRN IV For Anxiety 05/27/17 19:00 06/03/17 18:59 Losartan Potassium (Cozaar) 50 mg Q12HR ORAL 05/28/17 21:00 06/27/17 20:59 05/31/17 08:16 Methadone HCl (Methadone HCl) 5 mg DAILY ORAL 05/28/17 16:00 06/04/17 15:59 05/31/17 08:16 Methadone HCl (Methadone HCl) 60 mg DAILY ORAL 05/28/17 16:00 06/04/17 15:59 05/31/17 08:15 Metronidazole 100 ml @ 100 mls/hr Q8HR IVPB 05/27/17 23:30 06/03/17 23:29 05/31/17 14:28 Ondansetron HCl (Zofran) 4 mg Q4H PRN IVP Nausea & Vomiting 05/27/17 18:30 06/26/17 18:29 05/30/17 18:20 Pantoprazole (Protonix) 40 mg DAILY ORAL 05/30/17 09:00 06/29/17 08:59 05/31/17 08:14 Piperacillin Sod/ Tazobactam Sod 3.375 gm/Dextrose 110 ml @ 27.5 mls/hr Q8HR@0000,0800,1600 IVPB 05/29/17 00:00 06/04/17 11:59 05/31/17 08:11 Zolpidem Tartrate (Ambien) 5 mg DAILYPRN PRN ORAL Insomnia 05/27/17 18:30 06/03/17 18:29 Riya Franco M.D. May 31, 2017 15:03
[2017-05-31 16:00] VITALS: BP 117/61
--- NOTE | 2017-05-31 16:05 | Cardiology Report ---
APPROVED REPORT EKG Measurement Heart [id number] Sinus tachycardia with fusion complexes Biatrial enlargement Left ventricular hypertrophy Nonspecific ST and T wave abnormality Abnormal ECG
[2017-05-31 20:16] VITALS: BP 126/78
--- NOTE | 2017-05-31 22:02 | Nephrology Progress Note ---
Assessment/Plan Problem List: (1) Cholecystitis Assessment: s/p lap choley (2) Abdominal pain (3) Gall stones Plan Abx per ID. F/u recs per surgery. ADvance diet per surg. Ambulate. pain management. IVF. Subjective Subjective late entry for 05/30 - on CLD. Objective Objective Last 24 Hour Vital Signs Date Time Temp Pulse Resp B/P (MAP) Pulse Ox O2 Delivery O2 Flow Rate FiO2 05/31/17 20:16 98.2 68 20 126/78 97 Room Air 05/31/17 20:05 126/84 05/31/17 19:49 63 05/31/17 16:00 98.4 77 20 117/61 95 Room Air 05/31/17 16:00 74 05/31/17 12:00 65 05/31/17 12:00 99.6 69 17 128/83 98 Room Air 05/31/17 08:38 98.5 83 18 122/88 96 Room Air 05/31/17 08:16 137/86 05/31/17 08:15 65 137/86 05/31/17 08:00 77 05/31/17 04:00 98.1 65 18 137/86 97 Room Air 05/31/17 03:22 71 05/31/17 00:04 66 05/31/17 00:00 98.0 64 18 135/90 94 Room Air Intake and Output 05/31/17 06/01/17 19:00 07:00 Intake Total 1125.0 ml Balance 1125.0 ml Intake Oral 360 ml IV Total 765.0 ml # Voids 6 Height (Feet): 5 Height (Inches): 4.00 Weight (Pounds): 122 General Appearance: no apparent distress Cardiovascular: normal rate, regular rhythm Respiratory/Chest: lungs clear Abdomen: distended Extremities: trace edema Neurologic: alert DORIAN ISRAEL May 31, 2017 22:02
--- NOTE | 2017-05-31 22:03 | Nephrology Progress Note ---
Assessment/Plan Problem List: (1) Cholecystitis Assessment: s/p lap choley (2) Abdominal pain (3) Gall stones Plan Abx per ID. F/u recs per surgery. ADvance diet per surg. Ambulate. pain management. IVF. d/c plan soon. Subjective Subjective hungry. diet being advanced. KIRILL drain dc'd. Objective Objective Last 24 Hour Vital Signs Date Time Temp Pulse Resp B/P (MAP) Pulse Ox O2 Delivery O2 Flow Rate FiO2 05/31/17 20:16 98.2 68 20 126/78 97 Room Air 05/31/17 20:05 126/84 05/31/17 19:49 63 05/31/17 16:00 98.4 77 20 117/61 95 Room Air 05/31/17 16:00 74 05/31/17 12:00 65 05/31/17 12:00 99.6 69 17 128/83 98 Room Air 05/31/17 08:38 98.5 83 18 122/88 96 Room Air 05/31/17 08:16 137/86 05/31/17 08:15 65 137/86 05/31/17 08:00 77 05/31/17 04:00 98.1 65 18 137/86 97 Room Air 05/31/17 03:22 71 05/31/17 00:04 66 05/31/17 00:00 98.0 64 18 135/90 94 Room Air Intake and Output 05/31/17 06/01/17 19:00 07:00 Intake Total 1125.0 ml Balance 1125.0 ml Intake Oral 360 ml IV Total 765.0 ml # Voids 6 Height (Feet): 5 Height (Inches): 4.00 Weight (Pounds): 122 General Appearance: no apparent distress Cardiovascular: normal rate, regular rhythm Respiratory/Chest: lungs clear Abdomen: distended Extremities: trace edema Neurologic: alert DORIAN ISRAEL May 31, 2017 22:03
[2017-06-01] VITALS: BP 123/81
[2017-06-01 04:00] VITALS: BP 126/81
[2017-06-01] MEDS: D5 1/2NS w/KCl 20mEq 1,000 ML IV SCH ×2 (06:00→18:40)
[2017-06-01] MEDS: metroNIDAZOLE 500mg 100 ML IVPB SCH ×3 (06:00→22:00)
[2017-06-01 08:00] VITALS: BP 123/76
[2017-06-01] MEDS: Piperacillin/Tazobactam 3.375 GM in D5W 110 ML IVPB SCH ×4 (08:51→16:21)
[2017-06-01] MEDS: Losartan 50mg tab ORAL SCH ×2 (08:52→20:49)
[2017-06-01] MEDS: Docusate 100mg cap ORAL SCH ×2 (08:55→20:49)
[2017-06-01 09:54] LABS: BASOPHILS % (AUTO) 1.8 % (0.0-2.0); EOSINOPHILS % (AUTO) 0.2 % (0.0-3.0); LYMPHOCYTES % (AUTO) 14.1 % (20.0-45.0); MEAN CORPUSCULAR HEMOGLOBIN 29.4 PG (27.0-31.0); MEAN CORPUSCULAR HGB CONC 32.7 G/DL (32.0-36.0); MEAN CORPUSCULAR VOLUME 90 FL (80-99); MEAN PLATELET VOLUME 8.9 FL (6.5-10.1); MONOCYTES % (AUTO) 10.8 % (1.0-10.0); NEUTROPHILS % (AUTO) 73.1 % (45.0-75.0); PLATELET COUNT 188 K/UL (150-450); RED BLOOD COUNT 3.73 M/UL (4.20-5.40); RED CELL DISTRIBUTION WIDTH 11.5 % (11.6-14.8); WHITE BLOOD COUNT 9.1 K/UL (4.8-10.8)
[2017-06-01 10:17] LABS: ANION GAP 8 (5-15); CALCIUM 8.4 mg/dL (8.6-10.2); CARBON DIOXIDE 32 mEQ/L (20-30); CHLORIDE 96 mEQ/L (98-107); CREATININE 0.6 mg/dL (0.5-0.9); GLOMERULAR FILTRATION RATE > 60 mL/min (>60); HEMOLYSIS 1; POTASSIUM 4.1 mEQ/L (3.4-4.9); SODIUM 136 mEQ/L (135-145)
[2017-06-01 12:00] VITALS: BP 115/76
--- NOTE | 2017-06-01 12:16 | General Progress Note ---
Progress Note Progress Note Surgery: patient seen and examined at bedside. no acute events. tolerating regular diet. ambulatory. pain controlled. no n/v/f/c. afebrile, HD stable, VSS, exam benign. labs improved. okay to d/c from surgical standpoint. follow up with me in 1-2 weeks as an outpatient Raymond Roman Jun 01, 2017 12:16
[2017-06-01 16:00] VITALS: BP 98/68
--- NOTE | 2017-06-01 16:54 | Infectious Diseases Prog Note ---
Assessment/Plan Problems: (1) Cholecystitis Assessment & Plan: complicated with sepsis, improving on zosyn empirically , blood culture is negative so far , had surgical resection for source control , monitor WBC (2) Severe sepsis Assessment & Plan: due to cholecystitis , improving on zosyn, blood culture is negative (3) Gall stones Assessment & Plan: with acute cholecystitis, S/P surgical resection , surgery is following Subjective Constitutional: Reports: no symptoms HEENT: Reports: no symptoms Respiratory: Reports: no symptoms Breasts: Reports: no symptoms Cardiovascular: Reports: no symptoms Gastrointestinal/Abdominal: Reports: constipation, bloating Genitourinary: Reports: no symptoms Neurologic: Reports: no symptoms Psychiatric: Reports: no symptoms Skin: Reports: no symptoms Endocrine: Reports: no symptoms Hematologic: Reports: no symptoms Musculoskeletal: Reports: no symptoms Allergies: Coded Allergies: No Known Allergies (Unverified , 01/04/14) Objective Vital Signs Last 24 Hour Vital Signs Date Time Temp Pulse Resp B/P (MAP) Pulse Ox O2 Delivery O2 Flow Rate FiO2 06/01/17 16:00 65 06/01/17 16:00 97.7 60 18 98/68 Room Air 06/01/17 12:00 97.9 62 22 115/76 98 Room Air 06/01/17 12:00 63 06/01/17 08:54 65 126/81 06/01/17 08:52 126/81 06/01/17 08:00 72 06/01/17 08:00 98.4 64 16 123/76 99 Room Air 06/01/17 04:00 65 06/01/17 04:00 98.0 81 20 126/81 97 Room Air 06/01/17 00:00 98.1 76 21 123/81 97 Room Air 05/31/17 23:56 68 05/31/17 22:18 98.2 05/31/17 20:16 98.2 68 20 126/78 97 Room Air 05/31/17 20:05 126/84 05/31/17 19:49 63 Height (Feet): 5 Height (Inches): 4.00 Weight (Pounds): 122 General Appearance: WD/WN, no acute distress HEENT: normocephalic, atraumatic, anicteric, mucous membranes moist, PERRL, EOMI, pharynx normal, supple, no JVD Respiratory/Chest: chest wall non-tender, lungs clear, normal breath sounds, no respiratory distress, no accessory muscle use Cardiovascular: normal peripheral pulses, normal rate, regular rhythm, no gallop/murmur, no JVD Abdomen: normal bowel sounds, soft, non tender, no organomegaly, non distended , no mass, no scars Extremities: no cyanosis, no clubbing Skin: no rash, no lesions, no ulcers Neurologic/Psychiatric: alert, oriented x 3 Lymphatic: no neck adenopathy, no groin adenopathy Laboratory Tests Test 06/01/17 09:40 White Blood Count 9.1 K/UL (4.8-10.8) Red Blood Count 3.73 M/UL (4.20-5.40) L Hemoglobin 11.0 G/DL (12.0-16.0) L Hematocrit 33.5 % (37.0-47.0) L Mean Corpuscular Volume 90 FL (80-99) Mean Corpuscular Hemoglobin 29.4 PG (27.0-31.0) Mean Corpuscular Hemoglobin Concent 32.7 G/DL (32.0-36.0) Red Cell Distribution Width 11.5 % (11.6-14.8) L Platelet Count 188 K/UL (150-450) Mean Platelet Volume 8.9 FL (6.5-10.1) Neutrophils (%) (Auto) 73.1 % (45.0-75.0) Lymphocytes (%) (Auto) 14.1 % (20.0-45.0) L Monocytes (%) (Auto) 10.8 % (1.0-10.0) H Eosinophils (%) (Auto) 0.2 % (0.0-3.0) Basophils (%) (Auto) 1.8 % (0.0-2.0) Sodium Level 136 mEQ/L (135-145) Potassium Level 4.1 mEQ/L (3.4-4.9) Chloride Level 96 mEQ/L (98-107) L Carbon Dioxide Level 32 mEQ/L (20-30) H Anion Gap 8 (5-15) Blood Urea Nitrogen 5 mg/dL (7-23) L Creatinine 0.6 mg/dL (0.5-0.9) Estimat Glomerular Filtration Rate > 60 mL/min (>60) Glucose Level 150 mg/dL (74-106) H Calcium Level 8.4 mg/dL (8.6-10.2) L Current Medications Medications (Trade) Dose Ordered Sig/Thalia Route PRN Reason Start Time Stop Time Status Last Admin Dose Admin Amlodipine Besylate (Norvasc) 5 mg DAILY ORAL 05/27/17 19:30 06/26/17 19:29 06/01/17 08:54 Calcium Carbonate (Os-Dayne) 1,250 mg BID ORAL 06/01/17 17:00 06/02/17 09:01 Dextrose (Dextrose 50%) STAT PRN IV Hypoglycemia 05/27/17 18:30 06/26/17 18:29 Dextrose/ Electrolytes 1,000 ml @ 75 mls/hr [id number] IV 05/27/17 19:30 06/26/17 19:29 06/01/17 06:00 Docusate Sodium (Colace) 100 mg EVERY 12 HOURS ORAL 05/27/17 21:00 06/26/17 20:59 06/01/17 08:55 Hydromorphone HCl (Dilaudid) 1.5 mg Q4H PRN IVP Pain Scale (6-10) 05/28/17 19:00 06/04/17 18:59 05/31/17 21:47 Lorazepam (Ativan 2mg/ml 1ml) 1 mg Q4H PRN IV For Anxiety 05/27/17 19:00 06/03/17 18:59 Losartan Potassium (Cozaar) 50 mg Q12HR ORAL 05/28/17 21:00 06/27/17 20:59 06/01/17 08:52 Methadone HCl (Methadone HCl) 5 mg DAILY ORAL 05/28/17 16:00 06/04/17 15:59 06/01/17 08:55 Methadone HCl (Methadone HCl) 60 mg DAILY ORAL 05/28/17 16:00 06/04/17 15:59 06/01/17 08:54 Metronidazole 100 ml @ 100 mls/hr Q8HR IVPB 05/27/17 23:30 06/03/17 23:29 06/01/17 14:05 Ondansetron HCl (Zofran) 4 mg Q4H PRN IVP Nausea & Vomiting 05/27/17 18:30 06/26/17 18:29 05/30/17 18:20 Pantoprazole (Protonix) 40 mg DAILY ORAL 05/30/17 09:00 06/29/17 08:59 06/01/17 08:52 Piperacillin Sod/ Tazobactam Sod 3.375 gm/Dextrose 110 ml @ 27.5 mls/hr Q8HR@0000,0800,1600 IVPB 05/29/17 00:00 06/04/17 11:59 06/01/17 16:21 Zolpidem Tartrate (Ambien) 5 mg DAILYPRN PRN ORAL Insomnia 05/27/17 18:30 06/03/17 18:29 Riya Franco M.D. Jun 01, 2017 16:54
--- NOTE | 2017-06-01 18:08 | Nephrology Progress Note ---
Assessment/Plan Problem List: (1) Cholecystitis (2) Severe sepsis (3) Abdominal pain (4) anxiety (5) Polysubstance abuse (6) Gall stones (7) S/P laparoscopic cholecystectomy Plan Pain management f/u with surg recommendation Continue abx per ID Monitor lytes, correct prn Continue methadone DVT prophylaxis PPI DC plan, home in AM Subjective Constitutional: Reports: weakness HEENT: Denies: no symptoms, eye pain, blurred vision, tearing, double vision, ear pain, ear discharge, nose pain, nose congestion, throat pain, throat swelling, mouth pain, mouth swelling, other Genitourinary: Denies: no symptoms, burning, discharge, frequency, flank pain, hematuria, incontinence, pain, urgency, other Neurologic/Psychiatric: Denies: no symptoms, anxiety, depressed, emotional problems, headache, numbness, paresthesia, pre-existing deficit, seizure, tingling, tremors, weakness, other Subjective In bed, in no apparent distress. Objective Objective Last 24 Hour Vital Signs Date Time Temp Pulse Resp B/P (MAP) Pulse Ox O2 Delivery O2 Flow Rate FiO2 06/01/17 16:00 65 06/01/17 16:00 97.7 60 18 98/68 Room Air 06/01/17 12:00 97.9 62 22 115/76 98 Room Air 06/01/17 12:00 63 06/01/17 08:54 65 126/81 06/01/17 08:52 126/81 06/01/17 08:00 72 06/01/17 08:00 98.4 64 16 123/76 99 Room Air 06/01/17 04:00 65 06/01/17 04:00 98.0 81 20 126/81 97 Room Air 06/01/17 00:00 98.1 76 21 123/81 97 Room Air 05/31/17 23:56 68 05/31/17 22:18 98.2 05/31/17 20:16 98.2 68 20 126/78 97 Room Air 05/31/17 20:05 126/84 05/31/17 19:49 63 Intake and Output 06/01/17 06/02/17 19:00 07:00 Intake Total 110.0 ml Balance 110.0 ml IV Total 110.0 ml Laboratory Tests 06/01/17 09:40: White Blood Count 9.1, Red Blood Count 3.73L, Hemoglobin 11.0L, Hematocrit 33.5L , Mean Corpuscular Volume 90, Mean Corpuscular Hemoglobin 29.4, Mean Corpuscular Hemoglobin Concent 32.7, Red Cell Distribution Width 11.5L, Platelet Count 188, Mean Platelet Volume 8.9, Neutrophils (%) (Auto) 73.1, Lymphocytes (%) (Auto) 14.1L, Monocytes (%) (Auto) 10.8H, Eosinophils (%) (Auto ) 0.2, Basophils (%) (Auto) 1.8, Sodium Level 136, Potassium Level 4.1, Chloride Level 96L, Carbon Dioxide Level 32H, Anion Gap 8, Blood Urea Nitrogen 5L, Creatinine 0.6, Estimat Glomerular Filtration Rate > 60, Glucose Level 150H , Calcium Level 8.4L Height (Feet): 5 Height (Inches): 4.00 Weight (Pounds): 122 General Appearance: no apparent distress, alert EENT: PERRL/EOMI Neck: non-tender, normal alignment Cardiovascular: normal rate, regular rhythm Respiratory/Chest: normal breath sounds, no respiratory distress Abdomen: non tender, soft, no organomegaly Extremities: non-tender, normal inspection Neurologic: alert, oriented x 3, responsive, normal mood/affect Milka Hutson N.P. Jun 01, 2017 18:08
[2017-06-01] MEDS ORDERED: Milk of Magnesia 30ml Ud ORAL PRN (19:45)
[2017-06-01 20:05] VITALS: BP 114/63
[2017-06-02 00:32] VITALS: BP 123/70
[2017-06-02 04:10] VITALS: BP 117/84
[2017-06-02] MEDS: metroNIDAZOLE 500mg 100 ML IVPB SCH ×2 (05:45→14:01)
[2017-06-02 08:00] VITALS: BP 102/56
[2017-06-02] MEDS: Piperacillin/Tazobactam 3.375 GM in D5W 110 ML IVPB SCH ×3 (09:10)
[2017-06-02] MEDS: Losartan 50mg tab ORAL SCH (09:10)
[2017-06-02] MEDS: Docusate 100mg cap ORAL SCH (09:11)
[2017-06-02] MEDS ORDERED: ASPIR 8181 MG ORAL ×3 (11:09→11:11)
[2017-06-02] MEDS ORDERED: CALCIUM CARBON600 M1 PO (11:15)
[2017-06-02] MEDS ORDERED: PROTONIX20 MG ORAL (11:16)
[2017-06-02] MEDS ORDERED: LEVAQUIN500 MG ORAL (11:19)
[2017-06-02] MEDS ORDERED: METRONIDAZOLE500 MG ORAL (11:20)
[2017-06-02] MEDS: D5 1/2NS w/KCl 20mEq 1,000 ML IV SCH (11:32)
--- NOTE | 2017-06-02 14:16 | General Progress Note ---
Progress Note Progress Note doing well. no issues. had BM today d/c from surgical standpoint Raymond Roman Jun 02, 2017 14:16
[2017-06-02] MEDS ORDERED: NS 275ml ONE (15:10)
[2017-06-02] MEDS ORDERED: Tubing IV Secondary IV ONE (15:10)
--- NOTE | 2017-06-02 15:41 | Infectious Diseases Prog Note ---
Assessment/Plan Problems: (1) Cholecystitis Assessment & Plan: complicated with sepsis, improving on zosyn empirically , blood culture is negative so far , had surgical resection of the gall bladder , will switch to Augmentin and metronidazole for another 7 days (2) Severe sepsis Assessment & Plan: due to cholecystitis , improving on zosyn, blood culture is negative (3) Gall stones Assessment & Plan: with acute cholecystitis, S/P surgical resection , surgery is following Subjective Constitutional: Reports: no symptoms HEENT: Reports: no symptoms Respiratory: Reports: no symptoms Breasts: Reports: no symptoms Cardiovascular: Reports: no symptoms Gastrointestinal/Abdominal: Reports: no symptoms Genitourinary: Reports: no symptoms Neurologic: Reports: no symptoms Psychiatric: Reports: no symptoms Skin: Reports: no symptoms Endocrine: Reports: no symptoms Hematologic: Reports: no symptoms Allergies: Coded Allergies: No Known Allergies (Unverified , 01/04/14) Objective Vital Signs Last 24 Hour Vital Signs Date Time Temp Pulse Resp B/P (MAP) Pulse Ox O2 Delivery O2 Flow Rate FiO2 06/02/17 09:12 69 102/56 06/02/17 09:10 102/56 06/02/17 08:00 67 06/02/17 08:00 97.2 69 20 102/56 97 Room Air 06/02/17 04:10 98.4 62 20 117/84 99 Room Air 06/02/17 03:38 70 06/02/17 00:32 98.0 76 20 123/70 99 Room Air 06/01/17 23:57 78 06/01/17 20:49 114/63 06/01/17 20:05 98.2 72 20 114/63 98 Room Air 06/01/17 16:00 65 06/01/17 16:00 97.7 60 18 98/68 Room Air Height (Feet): 5 Height (Inches): 4.00 Weight (Pounds): 122 General Appearance: WD/WN, no acute distress HEENT: normocephalic, atraumatic, anicteric, mucous membranes moist, PERRL, EOMI, pharynx normal, supple, no JVD Respiratory/Chest: chest wall non-tender, lungs clear, normal breath sounds, no respiratory distress, no accessory muscle use Cardiovascular: normal peripheral pulses, normal rate, regular rhythm, no gallop/murmur, no JVD Abdomen: normal bowel sounds, soft, non tender, no organomegaly, non distended , no mass, no scars Extremities: no cyanosis, no clubbing Skin: no rash, no lesions, no ulcers Neurologic/Psychiatric: alert, oriented x 3 Lymphatic: no neck adenopathy, no groin adenopathy Current Medications Medications (Trade) Dose Ordered Sig/Thalia Route PRN Reason Start Time Stop Time Status Last Admin Dose Admin Amlodipine Besylate (Norvasc) 5 mg DAILY ORAL 05/27/17 19:30 06/26/17 19:29 06/02/17 09:12 Dextrose (Dextrose 50%) STAT PRN IV Hypoglycemia 05/27/17 18:30 06/26/17 18:29 Dextrose/ Electrolytes 1,000 ml @ 75 mls/hr [id number] IV 05/27/17 19:30 06/26/17 19:29 06/02/17 11:32 Docusate Sodium (Colace) 100 mg EVERY 12 HOURS ORAL 05/27/17 21:00 06/26/17 20:59 06/02/17 09:11 Hydromorphone HCl (Dilaudid) 1.5 mg Q4H PRN IVP Pain Scale (6-10) 05/28/17 19:00 06/04/17 18:59 05/31/17 21:47 Lorazepam (Ativan 2mg/ml 1ml) 1 mg Q4H PRN IV For Anxiety 05/27/17 19:00 06/03/17 18:59 Losartan Potassium (Cozaar) 50 mg Q12HR ORAL 05/28/17 21:00 06/27/17 20:59 06/02/17 09:10 Magnesium Hydroxide (Mom) 30 ml TIDPRN PRN ORAL Constipation 06/01/17 19:45 07/01/17 19:44 06/01/17 20:49 Methadone HCl (Methadone HCl) 5 mg DAILY ORAL 05/28/17 16:00 06/04/17 15:59 06/02/17 09:28 Methadone HCl (Methadone HCl) 60 mg DAILY ORAL 05/28/17 16:00 06/04/17 15:59 06/02/17 09:11 Metronidazole 100 ml @ 100 mls/hr Q8HR IVPB 05/27/17 23:30 06/03/17 23:29 06/02/17 14:01 Ondansetron HCl (Zofran) 4 mg Q4H PRN IVP Nausea & Vomiting 05/27/17 18:30 06/26/17 18:29 05/30/17 18:20 Pantoprazole (Protonix) 40 mg DAILY ORAL 05/30/17 09:00 06/29/17 08:59 06/02/17 09:10 Piperacillin Sod/ Tazobactam Sod 3.375 gm/Dextrose 110 ml @ 27.5 mls/hr Q8HR@0000,0800,1600 IVPB 05/29/17 00:00 06/04/17 11:59 06/02/17 09:10 Zolpidem Tartrate (Ambien) 5 mg DAILYPRN PRN ORAL Insomnia 05/27/17 18:30 06/03/17 18:29 Riya Franco M.D. Jun 02, 2017 15:41
[2017-06-02 16:00] VITALS: BP 117/74
[2017-06-02] MEDS ORDERED: Augmentin 875mg Tab ORAL SCH (21:00)
--- NOTE | 2017-06-04 14:40 | Discharge Summary ---
Discharge Summary Hospital Course Date of Admission May 27, 2017 at 13:09 Date of Discharge Jun 02, 2017 at 19:16 Admitting Diagnosis abdominal pain, sepsis HPI Eden Raza is a 62 year old female who was admitted on May 27, 2017 at 13: 09 for Abdominal Pain,Sepsis Hospital Course [id number] Discharge Discharge Disposition Patient was discharged to snf Discharge Diagnoses: Gina Max NP Jun 04, 2017 14:40
--- NOTE | 2017-06-05 07:31 | Discharge Summary 2 SIG ---
DATE OF ADMISSION: 05/27/2017 DATE OF DISCHARGE: 06/02/2017 DATA MANAGEMENT MANAGER: 1. Yobany Goldstein M.D. 2. Riya Franco M.D. Brief Hospital Course: The patient is a 62-year-old female. She has no known past medical history, presented to the ED complaining of right upper quadrant abdominal pain. Pain started two days prior to admission while at rest and have progressively worsened. On evaluation at ED, WBC was markedly elevated to 30. Abdominal ultrasound showed gallbladder sludge with markedly thickened gallbladder wall and a positive sonographic Soliz sign. She was admitted for acute cholecystitis and was started on Zosyn. Surgical evaluation was done. She underwent HIDA scan, results were positive. She then underwent the laparoscopic cholecystectomy on 05/28/[address] Goldstein. Postoperatively, she was given incentive spirometry and pain management. She was continued on her methadone. Diet was advanced slowly as the patient had ileus due to inflammation from gangrenous cholecystitis. Surgical drains were discontinued. The patient was passing flatus. Had to await return of normal bowel function. Blood cultures did not isolate any growth. The patient was cleared for discharge by Surgery. The patient had a bowel movement. and was eventually discharged home. Advised to follow up with Surgery in 1 to 2 weeks. FINAL DIAGNOSES: 1. Acute cholecystitis. 2. Severe sepsis due to cholecystitis. 3. Gallstones with acute cholecystitis status post laparoscopic cholecystectomy. 4. Anxiety. 5. Polysubstance abuse. Disposition: The patient was discharged to [facility]. Salvador Lindsey M.D. I have been assigned to dictate discharge summary on this account and I was not involved in the patient's management. Gina Max N.P. DR: Dwight JOB#: [id number] CC:
== END 2017-06-02 19:16 | DRG 710 ==
LOC: EMR 12:00 → EDBEDREQ 13:02 → EDBEDREQSVC 13:02 → 2E 13:09 → EDBEDREQ 15:20
PROC: 0DNW4ZZ Release Peritoneum, Percutaneous Endoscopic Approach (ICD-10-PCS; 2017-05-28)
PROC: 0FT44ZZ Resection of Gallbladder, Percutaneous Endoscopic Approach (ICD-10-PCS; principal; 2017-05-28 11:00)
DX: A41.9 Sepsis, unspecified organism (principal); K80.00 Calculus of gallbladder with acute cholecystitis without obstruction; R65.20 Severe sepsis without septic shock; K66.0 Peritoneal adhesions (postprocedural) (postinfection); F11.21 Opioid dependence, in remission; F41.9 Anxiety disorder, unspecified; F19.21 Other psychoactive substance dependence, in remission; K56.7 Ileus, unspecified; F11.20 Opioid dependence, uncomplicated
CPT/HCPCS: 36415; 76700; 78266; 80048; 80053; 83605; 83690; 84443; 84484; 85007; 85025; 85610; 85730; 86850; 86900; 86901; 87040; 93005; 94003; 94150; J2250; J2405; J2710

== ENCOUNTER 2017-09-24 14:33 | Emergency (ER) | payer OTHER ==
[~2017-09-24] VITALS: Ht 162.6 cm; Wt 59.0 kg
[~2017-09-24 14:33] MED LIST changes: +ASPIR 8181 MG ORAL; +CALCIUM CARBON600 M1 PO; +LEVAQUIN500 MG ORAL; +METRONIDAZOLE500 MG ORAL; +PROTONIX20 MG ORAL
[2017-09-24 15:09] VITALS: BP 155/85
[2017-09-24 15:14] VITALS: BP 155/85
[2017-09-24] MEDS ORDERED: NORVASC5 MG ORAL (15:14)
--- NOTE | 2017-09-28 14:42 | Emergency Room Report ---
History of Present Illness General Chief Complaint: General Complaint Source: Patient Present Illness Allergies: Coded Allergies: No Known Allergies (Unverified , 01/04/14) Patient History Past Medical History: HTN Past Surgical History: rishabh Pertinent Family History: none Social History: Denies: smoking, alcohol use, drug use Now: No Immunizations: UTD Reviewed Nursing Documentation: PMH: Agreed, PSxH: Agreed Nursing Documentation-PMH Past Medical History: No History, Except For Hx Asthma: Yes Hx Gastrointestinal Problems: Yes - cholecystectomy Review of Systems All Other Systems: negative except mentioned in HPI Physical Exam Vital Signs Date Time Temp Pulse Resp B/P (MAP) Pulse Ox O2 Delivery O2 Flow Rate FiO2 09/24/17 14:48 98.2 80 15 155/85 97 Room Air Sp02 EP Interpretation: reviewed, normal General Appearance: no apparent distress, alert, GCS 15, non-toxic Head: normocephalic, atraumatic Eyes: bilateral eye normal inspection, bilateral eye PERRL ENT: hearing grossly normal, normal pharynx, no angioedema, normal voice Neck: full range of motion, supple/symm/no masses Respiratory: chest non-tender, lungs clear, normal breath sounds, speaking full sentences Cardiovascular #1: regular rate, rhythm, no edema Cardiovascular #2: 2+ carotid (R), 2+ carotid (L), 2+ radial (R), 2+ radial (L) , 2+ dorsalis pedis (R), 2+ dorsalis pedis (L) Gastrointestinal: normal bowel sounds, non tender, soft, non-distended, no guarding, no rebound Rectal: deferred Genitourinary: normal inspection, no CVA tenderness Musculoskeletal: back normal, gait/station normal, normal range of motion, non- tender Neurologic: alert, oriented x3, responsive, motor strength/tone normal, sensory intact, speech normal Psychiatric: judgement/insight normal, memory normal, mood/affect normal, no suicidal/homicidal ideation Reflexes: 3+ bicep (R), 3+ bicep (L), 3+ tricep (R), 3+ tricep (L), 3+ knee (R) , 3+ knee (L) Skin: normal color, no rash, warm/dry, well hydrated Lymphatic: no adenopathy Medical Decision Making Diagnostic Impression: Primary Impression: Hypertension Qualified Codes: I10 - Essential (primary) hypertension ER Course Hospital Course 62-year-old female presents ED with elevated blood pressure. Asymptomatic Differential diagnoses include: hypertensive urgency, hypertensive emergency, arrythmia, LA/ACS Clinical course Patient placed on stretcher. After initial history , physical exam reveals an elderly female in no acute distress. No focal neurological deficits. No nuchal rigidity. Remainder physical exam unremarkable. Asystematic hypertension. I reviewed EMR patient was on amlodipine during hospital course. We'll discharge on amlodipine I. I feel this is a highly complex case requiring extensive working including EKG/Rhythm strip, Xray/CT/US, Blood/urine lab work, repeat exams while in ED, and administration of strong opiates/narcotics for pain control, admission to hospital or close patient follow up. Diagnosis - hypertension Stable and discharged to home with rx Amlodipine. Instructed to followup with PMD. Return to ED if symptoms recur or worsen Last Vital Signs Date Time Temp Pulse Resp B/P (MAP) Pulse Ox O2 Delivery O2 Flow Rate FiO2 09/24/17 15:14 98.2 80 15 155/85 97 Room Air Status: improved Disposition: HOME, SELF-CARE Condition: Stable Scripts Amlodipine Besylate (Norvasc) 5 Mg Tablet 5 MG ORAL DAILY, #30 TAB Prov: KAROL DAVILA M.D. 09/24/17 Referrals: [facility],REFERRING (PCP) Patient Instructions: Hypertension, Qmhf-[id number] KAROL DAVILA M.D. Sep 28, 2017 14:42
== END 2017-09-24 15:25 | disposition home or self-care (01) ==
LOC: EMR 15:10
DX: I10 Essential (primary) hypertension (principal); J45.909 Unspecified asthma, uncomplicated
CPT/HCPCS: 99283

== ENCOUNTER 2017-09-27 10:19 | Emergency (ER) | payer OTHER ==
[~2017-09-27] VITALS: Ht 162.6 cm; Wt 63.5 kg
[~2017-09-27 10:19] MED LIST changes: +NORVASC5 MG ORAL
[2017-09-27 11:03] LABS: BASOPHILS % (AUTO) 1.4 % (0.0-2.0); EOSINOPHILS % (AUTO) 0.6 % (0.0-3.0); HEMATOCRIT 40.1 % (37.0-47.0); LYMPHOCYTES % (AUTO) 38.9 % (20.0-45.0); MEAN CORPUSCULAR VOLUME 89 FL (80-99); MONOCYTES % (AUTO) 11.9 % (1.0-10.0); NEUTROPHILS % (AUTO) 47.3 % (45.0-75.0); PLATELET COUNT 143 K/UL (150-450); RED BLOOD COUNT 4.51 M/UL (4.20-5.40); RED CELL DISTRIBUTION WIDTH 11.5 % (11.6-14.8)
[2017-09-27 11:11] LABS: INR 1.1 (0.9-1.1)
[2017-09-27] MEDS ORDERED: HYDROCORTISONE30 G2 TP (11:51)
[2017-09-27 12:16] VITALS: BP 140/92
[2017-09-27 12:23] LABS: ALANINE AMINOTRANSFERASE 95 U/L (12-78); ALBUMIN 4.4 G/DL (3.4-5.0); ALBUMIN/GLOBULIN RATIO 1.1 (1.0-2.7); ALKALINE PHOSPHATASE 49 U/L (46-116); ANION GAP 9 mmol/L (5-15); ASPARTATE AMINO TRANSFERASE 68 U/L (15-37); BILIRUBIN,TOTAL 0.3 MG/DL (0.2-1.0); BLOOD UREA NITROGEN 17 mg/dL (7-18); CALCIUM 9.9 MG/DL (8.5-10.1); CARBON DIOXIDE 33 MMOL/L (21-32); CHLORIDE 103 MMOL/L (98-107); CREATININE 0.9 MG/DL (0.55-1.30); POTASSIUM 3.9 MMOL/L (3.5-5.1); SODIUM 145 MMOL/L (136-145)
--- NOTE | 2017-09-27 16:56 | Emergency Room Report ---
History of Present Illness General Chief Complaint: Skin Rash/Abscess Source: Patient Present Illness HPI Patient is a 62-year-old female who presented after increased skin rash. Patient gradual onset of symptoms. Patient reported having previously had history of substance abuse. She states that she been having increased itchiness to her lower extremity and subsequently noted a having some red bumps on her left leg.The patient denies any recent recent Drug or alcohol use Allergies: Coded Allergies: No Known Allergies (Unverified , 01/04/14) Patient History Past Medical History: see triage record Reviewed Nursing Documentation: PMH: Agreed, PSxH: Agreed Nursing Documentation-PMH Past Medical History: No History, Except For Hx Hypertension: Yes Hx Asthma: Yes Hx Gastrointestinal Problems: Yes - cholecystectomy Review of Systems All Other Systems: negative except mentioned in HPI Physical Exam Vital Signs Date Time Temp Pulse Resp B/P (MAP) Pulse Ox O2 Delivery O2 Flow Rate FiO2 09/27/17 10:30 98.2 92 16 141/68 99 Room Air General Appearance: well appearing, no apparent distress, alert, GCS 15, non- toxic, Chronically Ill Head: normocephalic, atraumatic ENT: hearing grossly normal, normal voice Neck: full range of motion, supple Respiratory: no respiratory distress, speaking full sentences Gastrointestinal: normal inspection Musculoskeletal: no calf tenderness Neurologic: normal inspection, alert, oriented x3, responsive, athletics director III-XII nml as tested, normal gait Psychiatric: mood/affect normal Skin: other - left leg faint pink rash Medical Decision Making Diagnostic Impression: Primary Impression: Thrombocytopenia ER Course Patient presented skin rash. The differential diagnosis included was not limited to ITP, vasculitis, and foot mouth disease, erythema nodosum among others for., Because of complexity of patient's case laboratory testing and imaging studies were ordered. Lab for sedation mildly diminished platelet count consistent with patient's previous labs. Patient is advised to have outpatient testing for low platelets. The patient is advised to follow up with primary care doctor in 1-2 days. Patient is advised to return if any worsening condition or if any changes in status that are concerning. This report is dictated with [employer] assembler show motor software which may occasionally lead to discrepancies related to use of this software. Labs Test 09/27/17 10:50 White Blood Count 4.0 K/UL (4.8-10.8) Red Blood Count 4.51 M/UL (4.20-5.40) Hemoglobin 13.0 G/DL (12.0-16.0) Hematocrit 40.1 % (37.0-47.0) Mean Corpuscular Volume 89 FL (80-99) Mean Corpuscular Hemoglobin 28.7 PG (27.0-31.0) Mean Corpuscular Hemoglobin Concent 32.3 G/DL (32.0-36.0) Red Cell Distribution Width 11.5 % (11.6-14.8) Platelet Count 143 K/UL (150-450) Mean Platelet Volume 11.6 FL (6.5-10.1) Neutrophils (%) (Auto) 47.3 % (45.0-75.0) Lymphocytes (%) (Auto) 38.9 % (20.0-45.0) Monocytes (%) (Auto) 11.9 % (1.0-10.0) Eosinophils (%) (Auto) 0.6 % (0.0-3.0) Basophils (%) (Auto) 1.4 % (0.0-2.0) Prothrombin Time 11.4 SEC (9.30-11.50) Prothromb Time International Ratio 1.1 (0.9-1.1) Activated Partial Thromboplast Time 27 SEC (23-33) Sodium Level 145 MMOL/L (136-145) Potassium Level 3.9 MMOL/L (3.5-5.1) Chloride Level 103 MMOL/L (98-107) Carbon Dioxide Level 33 MMOL/L (21-32) Anion Gap 9 mmol/L (5-15) Blood Urea Nitrogen 17 mg/dL (7-18) Creatinine 0.9 MG/DL (0.55-1.30) Estimat Glomerular Filtration Rate > 60 mL/min (>60) Glucose Level 109 MG/DL (74-106) Calcium Level 9.9 MG/DL (8.5-10.1) Total Bilirubin 0.3 MG/DL (0.2-1.0) Aspartate Amino Transf (AST/SGOT) 68 U/L (15-37) Alanine Aminotransferase (ALT/SGPT) 95 U/L (12-78) Alkaline Phosphatase 49 U/L (46-116) Total Protein 8.3 G/DL (6.4-8.2) Albumin 4.4 G/DL (3.4-5.0) Globulin 3.9 g/dL Albumin/Globulin Ratio 1.1 (1.0-2.7) Last Vital Signs Date Time Temp Pulse Resp B/P (MAP) Pulse Ox O2 Delivery O2 Flow Rate FiO2 09/27/17 12:16 98.2 78 19 140/92 Room Air 09/27/17 12:04 98 Status: improved Disposition: HOME, SELF-CARE Condition: Stable Scripts Hydrocortisone (Hydrocortisone Cream 2.5%) Y Cream.appl 1 APPLIC TP BID, #30 GM Prov: Gabino Elmore 09/27/17 Patient Instructions: Rash, Thrombocytopenia, [id number] Gabino Elmore Sep 27, 2017 16:56
== END 2017-09-27 12:17 | disposition home or self-care (01) ==
LOC: EMR 10:30
DX: D69.6 Thrombocytopenia, unspecified (principal); R21 Rash and other nonspecific skin eruption; I10 Essential (primary) hypertension; J45.909 Unspecified asthma, uncomplicated
CPT/HCPCS: 36415; 80053; 85025; 85610; 85730; 99284

== ENCOUNTER 2017-11-02 03:00 | Emergency (ER) | payer OTHER ==
[~2017-11-02] VITALS: Ht 162.6 cm; Wt 59.0 kg
[~2017-11-02 03:00] MED LIST changes: +HYDROCORTISONE30 G2 TP
[2017-11-02] MEDS ORDERED: METHADONE HCL5 MG PO (03:43)
[2017-11-02] MEDS ORDERED: NORVASC5 MG ORAL (04:16)
[2017-11-02] MEDS ORDERED: BENADRYL CRE1 APPLIC TOPIC (04:16)
[2017-11-02 04:27] VITALS: BP 158/92
[2017-11-02 04:32] VITALS: BP 158/92
--- NOTE | 2017-11-02 05:32 | Emergency Room Report ---
History of Present Illness General Chief Complaint: General Complaint Source: Patient Present Illness HPI 62YOF with itch to bilateral lower legs/ankles for 1 day Denies any observed rash, bites Denies fever/chills Denies new medication Also asking for norvasc refill Allergies: Coded Allergies: No Known Allergies (Unverified , 01/04/14) Patient History Past Medical History: HTN Past Surgical History: rishabh Pertinent Family History: none Social History: Denies: smoking, alcohol use, drug use Now: No Immunizations: UTD Reviewed Nursing Documentation: PMH: Agreed, PSxH: Agreed Nursing Documentation-PMH Hx Hypertension: Yes Hx Asthma: Yes Hx Gastrointestinal Problems: Yes - cholecystectomy Review of Systems All Other Systems: negative except mentioned in HPI Physical Exam Vital Signs Date Time Temp Pulse Resp B/P (MAP) Pulse Ox O2 Delivery O2 Flow Rate FiO2 11/02/17 03:36 98.1 133 20 155/88 96 Room Air 98.1 Sp02 EP Interpretation: reviewed, normal General Appearance: normal inspection, well appearing, no apparent distress, alert, GCS 15, non-toxic Head: normocephalic, atraumatic Eyes: bilateral eye PERRL, bilateral eye EOMI ENT: normal ENT inspection, hearing grossly normal, normal pharynx, no angioedema, normal voice, TMs + canals normal, uvula midline, moist mucus membranes Neck: normal inspection, full range of motion, supple, thyroid normal, no meningismus, no bony tend Respiratory: normal inspection, lungs clear, normal breath sounds, no rhonchi, no respiratory distress, no retraction, no accessory muscle use, no wheezing, speaking full sentences Cardiovascular #1: regular rate, rhythm, no edema, no JVD, normal capillary refill Gastrointestinal: normal inspection, normal bowel sounds, non tender, soft, no mass, no peritonitis, non-distended, no guarding, no hernia, no pulsatile mass Genitourinary: no CVA tenderness Musculoskeletal: normal inspection, back normal, normal range of motion, no calf tenderness, pelvis stable, Melba's Sign negative Neurologic: normal inspection, alert, oriented x3, responsive, self pay specialist III-XII nml as tested, motor strength/tone normal, cerebellar normal, normal gait, speech normal Psychiatric: normal inspection, judgement/insight normal, mood/affect normal, no suicidal/homicidal ideation, no delusions Skin: no rash, warm/dry, other - excoriations. No vesicles, bites. Very dry skin Lymphatic: normal inspection, no adenopathy Medical Decision Making Diagnostic Impression: Primary Impression: Itch ER Course Itch/pruritis likely from dry skin VSS, afebrile No sign of cellulitis, bites Advised topical benadryl, skin moisturizer Close PMD followup as needed DC Last Vital Signs Date Time Temp Pulse Resp B/P (MAP) Pulse Ox O2 Delivery O2 Flow Rate FiO2 11/02/17 04:32 98.1 82 20 158/92 96 Room Air 98.1 Status: improved Disposition: HOME, SELF-CARE Condition: Improved Scripts Amlodipine Besylate (Norvasc) 5 Mg Tablet 5 MG ORAL DAILY for 30 Days, #30 TAB Prov: ABBY BAR M.D. 11/02/17 Diphenhydramine HCl/Zinc Acet (Benadryl Itch Stopping Crm) 28.3 Gm Cream..g. 1 APPLIC TOPIC BID for Itching for 7 Days, #1 UNIT Prov: ABBY BAR M.D. 11/02/17 Referrals: [facility],REFERRING (PCP) Patient Instructions: Pruritus, Hypertension, [id number] ABBY BAR M.D. Nov 02, 2017 05:32
== END 2017-11-02 04:30 | disposition home or self-care (01) ==
LOC: EMR 04:11
DX: L29.9 Pruritus, unspecified (principal); I10 Essential (primary) hypertension; J45.909 Unspecified asthma, uncomplicated; Z90.49 Acquired absence of other specified parts of digestive tract
CPT/HCPCS: 99284

== ENCOUNTER 2018-03-08 11:02 | Emergency (ER) | payer OTHER ==
[~2018-03-08] VITALS: Ht 162.6 cm; Wt 68.0 kg
[~2018-03-08 11:02] MED LIST changes: +BENADRYL CRE1 APPLIC TOPIC; +METHADONE HCL5 MG PO
[2018-03-08] MEDS ORDERED: Bisacodyl EC 5mg tab ORAL ONE (12:15)
[2018-03-08 12:20] LABS: APPEARANCE,URINE CLEAR; BILIRUBIN, URINE NEGATIVE (NEGATIVE); COLOR,URINE PALE YELLOW; GLUCOSE, URINE (UA) NEGATIVE (NEGATIVE); KETONES,URINE NEGATIVE (NEGATIVE); LEUKOCYTE ESTERASE ,URINE 1+ (NEGATIVE); NITRITE,URINE NEGATIVE (NEGATIVE); PH,URINE 7 (4.5-8.0); PROTEIN,URINE NEGATIVE (NEGATIVE); UROBILINOGEN,URINE NORMAL MG/DL (0.0-1.0)
[2018-03-08 12:27] VITALS: BP 158/80
--- NOTE | 2018-03-08 12:56 | Diagnostic Imaging Report ---
Indication: Abdominal pain Technique: Supine view of the abdomen Comparison: none Findings: Bowel gas pattern is unremarkable. Surgical clips are seen in the right upper quadrant. No unusual masses or calcifications Impression: No acute process
[2018-03-08 14:51] LABS: EOSINOPHILS % (AUTO) 0.7 % (0.0-3.0); HEMATOCRIT 39.6 % (37.0-47.0); HEMOGLOBIN 13.4 G/DL (12.0-16.0); LYMPHOCYTES % (AUTO) 41.9 % (20.0-45.0); MEAN CORPUSCULAR VOLUME 86 FL (80-99); MONOCYTES % (AUTO) 14.9 % (1.0-10.0); NEUTROPHILS % (AUTO) 40.5 % (45.0-75.0); PLATELET COUNT 135 K/UL (150-450); RED BLOOD COUNT 4.58 M/UL (4.20-5.40); RED CELL DISTRIBUTION WIDTH 11.9 % (11.6-14.8); WHITE BLOOD COUNT 3.9 K/UL (4.8-10.8)
[2018-03-08 15:02] LABS: ANION GAP 9 mmol/L (5-15); BLOOD UREA NITROGEN 16 mg/dL (7-18); CALCIUM 9.7 MG/DL (8.5-10.1); CARBON DIOXIDE 28 MMOL/L (21-32); CHLORIDE 101 MMOL/L (98-107); CREATININE 0.9 MG/DL (0.55-1.30); SODIUM 137 MMOL/L (136-145)
[2018-03-08 15:06] LABS: ALANINE AMINOTRANSFERASE 198 U/L (12-78); ALKALINE PHOSPHATASE 63 U/L (46-116); ASPARTATE AMINO TRANSFERASE 174 U/L (15-37); BILIRUBIN,TOTAL 0.4 MG/DL (0.2-1.0)
--- NOTE | 2018-03-08 16:05 | Emergency Room Report ---
History of Present Illness General Chief Complaint: Constipation Source: Patient Present Illness HPI Patient complains of constipation. Has been 1 week since last full BM. Does not feel blockage. Moved some hard stool earlier today. No blood. On lactulose and takes other stool softeners. Tried mag citrate without much help. She has chronic constipation from being on Methadone 50 mg. She feels dehydrated. Pain initially rated 0/10. No fevers, chills, NV. No dysuria. No joint pain. No AGUILAR. Chronic anxiety. Post rishabh. H/O HTN. Allergies: Coded Allergies: No Known Allergies (Unverified , 01/04/14) Patient History Past Medical History: see triage record Past Surgical History: rishabh Pertinent Family History: other - constipation Social History: Reports: smoking, drug use Social History Narrative from home Last Menstrual Period: no more period. Reviewed Nursing Documentation: PMH: Agreed; PSxH: Agreed Nursing Documentation-PMH Hx Cardiac Problems: Yes - on Methadone Hx Hypertension: Yes Hx Asthma: Yes Hx Gastrointestinal Problems: Yes - cholecystectomy 2016 Review of Systems All Other Systems: negative except mentioned in HPI Physical Exam Vital Signs Date Time Temp Pulse Resp B/P (MAP) Pulse Ox O2 Delivery O2 Flow Rate FiO2 03/08/18 11:11 98.9 84 18 164/81 98 Room Air 99.0 Sp02 EP Interpretation: reviewed, normal General Appearance: no apparent distress, GCS 15, non-toxic, thin Head: normocephalic Eyes: bilateral eye normal inspection, bilateral eye PERRL ENT: moist mucus membranes Neck: supple Respiratory: lungs clear, normal breath sounds Cardiovascular #1: regular rate, rhythm Cardiovascular #2: 2+ radial (R) Gastrointestinal: normal bowel sounds, non tender, scaphoid Genitourinary: no CVA tenderness Musculoskeletal: back normal, gait/station normal, normal range of motion Neurologic: alert, oriented x3, grossly normal Psychiatric: mood/affect normal - loquatious Skin: normal inspection, warm/dry Medical Decision Making Diagnostic Impression: Primary Impression: Constipation Qualified Codes: K59.03 - Drug induced constipation Additional Impression: Methadone use ER Course Patient with constipation on lactulose and other laxatives. DDx; impaction, dehydration, opioid induced constipation, diverticulitis, UTI amongst others. Evaluation with labs and x-ray. Will treat with laxatives in ED. Labs with normal WBC and CMP with sl elevated LFTs. UA clear. Abd film with stool no SBO. Patient able to move bowels in ED. Improved. Discussed diet and better control of problem. Patient stable for outpatient observation and treatment. Laboratory Tests Test 03/08/18 11:16 03/08/18 14:30 Urine Color Pale yellow Urine Appearance Clear Urine pH 7 (4.5-8.0) Urine Specific [place] 1.005 (1.005-1.035) Urine Protein Negative (NEGATIVE) Urine Glucose (UA) Negative (NEGATIVE) Urine Ketones Negative (NEGATIVE) Urine Occult Blood Negative (NEGATIVE) Urine Nitrite Negative (NEGATIVE) Urine Bilirubin Negative (NEGATIVE) Urine Urobilinogen Normal MG/DL (0.0-1.0) Urine Leukocyte Esterase 1+ (NEGATIVE) H Urine RBC 0-2 /HPF (0 - 2) Urine WBC 0-2 /HPF (0 - 2) Urine Squamous Epithelial Cells Occasional /LPF Urine Bacteria Occasional /HPF (NONE) White Blood Count 3.9 K/UL (4.8-10.8) L Red Blood Count 4.58 M/UL (4.20-5.40) Hemoglobin 13.4 G/DL (12.0-16.0) Hematocrit 39.6 % (37.0-47.0) Mean Corpuscular Volume 86 FL (80-99) Mean Corpuscular Hemoglobin 29.3 PG (27.0-31.0) Mean Corpuscular Hemoglobin Concent 34.0 G/DL (32.0-36.0) Red Cell Distribution Width 11.9 % (11.6-14.8) Platelet Count 135 K/UL (150-450) L Mean Platelet Volume 11.8 FL (6.5-10.1) H Neutrophils (%) (Auto) 40.5 % (45.0-75.0) L Lymphocytes (%) (Auto) 41.9 % (20.0-45.0) Monocytes (%) (Auto) 14.9 % (1.0-10.0) H Eosinophils (%) (Auto) 0.7 % (0.0-3.0) Basophils (%) (Auto) 2.0 % (0.0-2.0) Sodium Level 137 MMOL/L (136-145) Potassium Level 4.0 MMOL/L (3.5-5.1) Chloride Level 101 MMOL/L (98-107) Carbon Dioxide Level 28 MMOL/L (21-32) Anion Gap 9 mmol/L (5-15) Blood Urea Nitrogen 16 mg/dL (7-18) Creatinine 0.9 MG/DL (0.55-1.30) Estimate Glomerular Filtration Rate > 60 mL/min (>60) Glucose Level 140 MG/DL (74-106) H Calcium Level 9.7 MG/DL (8.5-10.1) Total Bilirubin 0.4 MG/DL (0.2-1.0) Aspartate Amino Transferase (AST) 174 U/L (15-37) H Alanine Aminotransferase (ALT) 198 U/L (12-78) H Alkaline Phosphatase 63 U/L (46-116) Total Protein 8.2 G/DL (6.4-8.2) Albumin 4.0 G/DL (3.4-5.0) Globulin 4.2 g/dL Albumin/Globulin Ratio 1.0 (1.0-2.7) Lipase 138 U/L (73-393) Other X-Ray Diagnostic Results Other X-Ray Diagnostic Results : X-Ray ordered: abd # of Views/Limited Vs Complete: 1 View Indication: Other EP Interpretation: Yes Interpretation: nonspecific bowel gas, no sbo, other - inc stool Impression: Other Electronically Signed by: Akira Galindo MD Last Vital Signs Date Time Temp Pulse Resp B/P (MAP) Pulse Ox O2 Delivery O2 Flow Rate FiO2 03/08/18 17:13 99.0 89 18 158/80 98 Room Air 99.0 Status: improved Disposition: HOME, SELF-CARE Condition: Improved Scripts Bisacodyl* (DULCOLAX*) 5 Mg Tablet. 5 MG ORAL weekly PRN for constipation, #10 TAB 0 Refills Prov: Akira Galindo M.D. 03/08/18 Lactulose (LACTULOSE*) 20 Gm/30 Ml Solution 30 ML ORAL BID, #240 ML 1 Refill Prov: Akira Galindo M.D. 03/08/18 Referrals: [facility],REFERRING (PCP) Akira Galindo M.D. Mar 08, 2018 16:05
[2018-03-08] MEDS ORDERED: BISACODYL5 MG ORAL (16:08)
[2018-03-08] MEDS ORDERED: LACTULOSE20 GM/301 ORAL (16:08)
[2018-03-08 17:13] VITALS: BP 158/80
== END 2018-03-08 16:00 | disposition home or self-care (01) ==
LOC: EMR 12:45
DX: K59.00 Constipation, unspecified (principal); T40.2X5A Adverse effect of other opioids, initial encounter; F11.90 Opioid use, unspecified, uncomplicated; I10 Essential (primary) hypertension; J45.909 Unspecified asthma, uncomplicated; Z90.49 Acquired absence of other specified parts of digestive tract
CPT/HCPCS: 36415; 74018; 80053; 81003; 83690; 85025; 99284

== ENCOUNTER 2018-03-30 20:13 | Emergency (ER) | payer OTHER ==
[~2018-03-30] VITALS: Ht 162.6 cm; Wt 74.4 kg
[~2018-03-30 20:13] MED LIST changes: +BISACODYL5 MG ORAL; +LACTULOSE20 GM/301 ORAL
[2018-03-30 20:45] VITALS: BP 126/74
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
[2018-03-30] MEDS ORDERED: Norco 5mg/325mg tab ORAL ONE (21:15)
[2018-03-30] MEDS ORDERED: NORVASC5 MG ORAL (21:16)
[2018-03-30] MEDS ORDERED: NORCO 5-325 TA1 EACH ORAL (21:16)
[2018-03-30 21:20] VITALS: BP 126/74
== END 2018-03-30 21:30 | disposition home or self-care (01) ==
LOC: EMR 21:30
DX: R60.0 Localized edema (principal); I10 Essential (primary) hypertension; J45.909 Unspecified asthma, uncomplicated; Z90.49 Acquired absence of other specified parts of digestive tract; G89.29 Other chronic pain
CPT/HCPCS: 99284